=== PATIENT | female | born 1950 | race Two or more races ===

== ENCOUNTER → 2024-04-29 | Outpatient (CLI) | payer MEDICARE ==
--- NOTE | 2024-04-30 21:32 | PE ---
EXAMINATION TYPE: PET CT fusion skull to thigh DATE OF EXAM: 04/29/2024 CLINICAL INDICATION:Female, 74 years old with history of R91.1 lung nodule; TECHNIQUE: Following the intravenous administration of 8.07 mCi of F-18 FDG, whole body images are performed from the skull base to the midthigh. Images are reviewed on the computer in the coronal, a xial, and sagittal planes. Reconstructed rotating images are created on independent workstation and reviewed on the computer. A non-contrast CT is performed in conjunction with the PET scan. Glucose level 94 mg/dL CT DLP: 249.88 mGycm, Automated exposure control for dose reduction was used. COMPARISON: None available. FINDINGS: Mediastinal SUV mean is 1.5. Hepatic parenchyma SUV mean is 2.2. SKULL BASE AND NECK: No suspicious radiotracer activity. CHEST, MEDIASTINUM, AND HILAR REGION: There are FDG avid enlarged mediastinal and right hilar confluent adenopathy with examples including a pretracheal mass measuring 4.3 x 3.9 cm with a maximum SUV of 11.9. A subcarinal conglomerate mass measuring up to 3.3 cm in AP dimension with a max SUV of 12.4. Large soft tissue mass within the right hilum extending into the right lower lobe measuring grossly 1 0.2 x 6.3 cm. Demonstrates a maximum SUV of 20.5. There is adjacent opacities within the right lower lobe without FDG activity. There is a broad cut off of the right lower lobe bronchus. Findings are mo st consistent with post obstructive atelectasis. Left lower lobe subcentimeter pulmonary nodules with a maximum SUV of 3.4. Right axillary enlarged lymph node measuring up to 1.4 cm with a maximum SUV of 9.7. ABDOMEN AND PELVIS: Periportal enlarged lymph nodes with a maximum SUV of 12.7. Multifocal bilobar FDG avid regions of radiotracer activity with maximum SUV in the right lobe of 18. 0. The max SUV in the left hepatic lobe is 20.0. MUSCULOSKELETAL STRUCTURES: Innumerable lytic lesions throughout the osseous structures involving the bilateral femurs, pelvic sheila yanni, entire spine, bilateral ribs, sternum, both scapula, both clavicles, the left mandible, calvariu m, and the sella. Examples include the manubrium with a max SUV of 18.3, L5 vertebral body with a max SUV of 21.5, C4 v ertebral body with a max SUV of 20.3, and posterior left iliac bone with a max SUV of 20.9. OTHER CT: Bilateral carotid bulb calcifications. Left thyroid lobe 1.3 cm hypodense nodule. Centrilob ular emphysematous changes. IMPRESSION: Extensive malignancy/metastasis with FDG avid large conglomerate right lower lobe mass extending into the right hilum. FDG avid mediastinal, right axillary, and periportal lymphadenopathy. Innumerable F DG avid liver metastasis and innumerable diffuse osseous lytic metastasis. The right hilar mass cause s abrupt cut off of the right lower lobe bronchus causing post obstructive atelectasis. [facility], , 04/30/2024 9:30 PM
== END | disposition home or self-care (01) ==
LOC: RADPETMAIN 09:25
PROVIDERS: ATTEND Internal Medicine
DX: C78.7 Secondary malignant neoplasm of liver and intrahepatic bile duct (principal); R59.0 Localized enlarged lymph nodes; R91.8 Other nonspecific abnormal finding of lung field
CPT/HCPCS: 78815; A9552

== ENCOUNTER 2024-05-04 12:38 | Inpatient (IN) | payer MEDICARE ==
[2024-05-04] MEDS: IV FLUID CONTINUATION 1,000 ML IV ONE (12:57)
[2024-05-04] MEDS: LACTATED RINGERS 1,000 ML IV SCH (13:27)
[2024-05-04] MEDS: IPRATROPIUM-ALBUTEROL 3 ML NEB INHALATION STA (13:28)
[2024-05-04 15:04] LABS: Influenza A Not Detected (Not Detectd); Influenza B Not Detected (Not Detectd); RSV Not Detected (Not Detectd)
[2024-05-04] MEDS ORDERED: ONDANSETRON 4 MG/2 ML VIAL IVP PRN (17:05)
[2024-05-04] MEDS ORDERED: CALCIUM CARBONATE 500 MG CHEWABLE PO PRN (17:05)
[2024-05-04] MEDS ORDERED: NALOXONE 0.4 MG/ML 1 ML VIAL IV PRN (17:05)
[2024-05-04] MEDS ORDERED: IBUPROFEN 400 MG TAB PO PRN (17:05)
[2024-05-04] MEDS ORDERED: MAG HYDROX/AL HYDROX/SIMETH 30 ML CUP PO PRN (17:05)
[2024-05-04] MEDS: HYDROcodone/APAP 5-325MG 1 EACH TAB PO PRN (17:52)
[2024-05-04] MEDS: PIPERACILLIN-TAZOBACTAM 3.375 GM in SODIUM CHLORIDE 0.9% 100 ML IVPB SCH (17:56)
--- NOTE | 2024-05-04 18:37 | CT ---
EXAMINATION TYPE: CT brain wo con DATE OF EXAM: 05/04/2024 6:14 PM COMPARISON: PET. CLINICAL INDICATION: Female, 74 years old with history of ams, weakness, ams TECHNIQUE: Brain: Axial CT images of the brain were obtained with coronal and sagittal reformats created and rev iewed. Contrast used: None. Oral contrast used: None. CT DLP: 1144.7 mGycm, Automated exposure control for dose reduction was used. FINDINGS: Brain: Extra-axial spaces: No abnormal extra-axial fluid collections. Ventricular system: Dilatation in proportion to cerebral atrophy. Cerebral parenchyma: Cerebral atrophy. No acute intraparenchymal hemorrhage or mass effect. The mullen -white junction is well differentiated. Scattered hypoattenuating areas are seen within the white mat ter. Cerebellum: Unremarkable. Mass effect: No evidence of midline shift. Intracranial vasculature: Atherosclerotic calcifications of the intracranial vessels. Soft tissues: Normal. Calvarium/osseous structures: No depressed skull fracture. Scattered lucent lesions throughout the sk ull. Paranasal sinuses and mastoid air cells: Mild scattered paranasal sinus disease. Visualized orbits: Orbital contents are intact. IMPRESSION: 1. No acute intracranial process. 2. Scattered lucent lesions throughout the skull compatible with metastatic disease seen on prior PET . 3. Nonspecific white matter changes, likely secondary to chronic small vessel ischemic disease. [facility], , 05/04/2024 6:35 PM
[2024-05-04 18:56] LABS: Basophils % (A) 0 %; Eosinophils % (A) 0 %; HCT 34.9 % (34.0-46.0); Hypochromasia Slight; Lymphocytes # (A) 0.9 k/uL (1.0-4.8); Lymphocytes % (A) 9 %; MCH 31.2 pg (25.0-35.0); MCHC 31.6 g/dL (31.0-37.0); MCV 98.8 fL (80.0-100.0); Macrocytosis Slight; Monocytes # (A) 0.6 k/uL (0-1.0); Monocytes % (A) 6 %; Neutrophils # (A) 7.7 k/uL (1.3-7.7); Neutrophils % (A) 82 %; RBC 3.53 m/uL (3.80-5.40); RDW 14.8 % (11.5-15.5); WBC 9.4 k/uL (3.8-10.6)
[2024-05-04] MEDS: IPRATROPIUM-ALBUTEROL 3 ML NEB INHALATION SCH (18:56)
[2024-05-04] MEDS: SYMBICORT 80-4.5 MCG INHALER INHALATION SCH (18:56)
--- NOTE | 2024-05-04 18:59 | P.CNPUL ---
History of Present Illness Consult date: 05/04/24 Reason for consult: dyspnea, lung mass, abnormal CXR/CT History of present illness: This is a 74-year-old female patient who came in today to undergo the bronchoscopy and endobronchial ultrasound for tissue diagnosis regarding possibility of lung cancer the patient was found to have an abnormal CAT scan of the chest that was done on outpatient basis. The patient was saw me in the office approximately a week ago and she was referred to me for an abnormal CAT scan of the chest and shortness of breath. She is a [id number] smoking history and over the past 6 months the patient has been getting progressively more short of breath experiencing exertional dyspnea without hemoptysis. She also had an unexplained weight loss. She had diffuse body aches including pain in her mid back, lower spinal region and upper neck area. Noted the patient had a low-dose CAT scan of the chest that was done on 04/08/2024 and the patient was found to have a large mass measuring up to 7 cm in size in the right lower lobe causing narrowing of the right lower lobe bronchus and tapering of the bronchus intermedius and the patient had atelectatic change in the right lung base posteriorly. There was also evidence of mediastinal lymphadenopathy involving the subcarinal and paratracheal area and there was also abnormalities in the sixth and seventh rib on the right consistent with metastatic disease. There was also disease involving the L2 vertebral spine superior endplate consistent with metastatic disease. Her FEV1 was 34% of predicted and the patient was taken Advair. The patient was supposed to undergo a bronchoscopy today. She arrived and she was hypoxic and she was febrile and she was having increased cough and congestion and shortness of breath. Based on that, the procedure was canceled. A PET scan was also done on 04/30/2024 and the findings were considered to be abnormal. There was extensive metastatic disease with FDG uptake with large conglomeration of uptake in the right lower lobe mass extending to the right hilar in addition to FDG avid mediastinal, right axillary, periaortic node adenopathy and multiple innumerable FDG activity in the liver and diffuse osseous metastatic lytic lesions. There is also an abrupt cut off on the right lower lobe bronchus and postobstructive pneumonia changes. Based on that, I canceled the procedure and admitted this patient to the hospital. The patient is currently on 2 L of oxygen by nasal cannula with a pulse ox of 98%. Her temperature is at 100.0. Review of Systems Constitutional: Reports chronic pain, Reports fatigue, Reports lethargy, Reports poor appetite, Reports weakness, Reports weight loss Eyes: denies as per HPI, denies blurred vision, denies bulging eye, denies decreased vision, denies diplopia, denies discharge, denies dry eye, denies irritation, denies itching, denies pain, denies photophobia, denies loss of peripheral vision, denies loss of vision, denies tunnel vision/blind spots Ears: deny: decreased hearing Ears, nose, mouth and throat: Reports as per HPI Breasts: absent: as per HPI, change in shape, gynecomastia, masses, nipple discharge, pain, skin changes, swelling Cardiovascular: Reports decreased exercise tolerance, Reports dyspnea on exertion Respiratory: Reports cough, Reports dyspnea Gastrointestinal: Reports as per HPI, Reports loss of appetite Genitourinary: Reports as per HPI Menstruation: Reports as per HPI Musculoskeletal: Reports low back pain, Reports muscle weakness Musculoskeletal: absent: ankle pain, ankle stiffness, ankle swelling, as per HPI, elbow pain, elbow stiffness, elbow swelling, foot pain, foot stiffness, foot swelling, hand pain, hand stiffness, hand swelling, hip pain, hip stiffness, hip swelling, knee pain, knee stiffness, knee swelling, shoulder pain, shoulder stiffness, shoulder swelling, wrist pain, wrist stiffness, wrist swelling Integumentary: Reports as per HPI Neurological: Reports as per HPI Psychiatric: Reports as per HPI Endocrine: Reports fatigue Hematologic/Lymphatic: Reports as per HPI Allergic/Immunologic: Reports as per HPI Past Medical History Past Medical History: COPD, Hyperlipidemia, Hypertension Additional Past Medical History / Comment(s): coughing,shortness of breath, History of Any Multi-Drug Resistant Organisms: None Reported Additional Past Surgical History / Comment(s): lymph node bix in groin Past Anesthesia/Blood Transfusion Reactions: No Reported Reaction Smoking Status: Former smoker - Past Family History Father Family Medical History: Cancer Mother Family Medical History: Cancer Medications and Allergies Home Medications Medication Instructions Recorded Confirmed Type Albuterol Inhaler [Ventolin Hfa 1 - 2 puff INHALATION Q6H PRN 05/03/24 05/04/24 History Inhaler] Atorvastatin [Lipitor] 20 mg PO HS 05/03/24 05/04/24 History Fluticasone Propion/Salmeterol 2 puff INHALATION BID 05/03/24 05/04/24 History [Advair Hfa 45-21 Mcg Inhaler] hydroCHLOROthiazide 12.5 mg PO DAILY 05/03/24 05/04/24 History Allergies Allergy/AdvReac Type Severity Reaction Status Date / Time No Known Allergies Allergy Verified 05/04/24 13:09 Physical Exam Vitals: Vital Signs Temp Pulse Resp BP Pulse Ox 05/04/24 17:05 98 05/04/24 16:32 98.3 F 98 17 145/77 96 05/04/24 15:45 100 18 148/72 98 05/04/24 14:14 100.0 F H 101 H 20 98 05/04/24 13:11 107 H 20 97 05/04/24 12:59 99.9 F H 112 H 22 152/82 91 L Intake and Output 05/04/24 05/04/24 05/04/24 06:59 14:59 22:59 Intake Total 1080 Balance 1080 Intake: Oral 1080 Other: # Voids 1 Weight 48.6 kg The patient appeared ill looking, currently on 2 L of oxygen by nasal cannula. Some mild shortness of breath even at rest. She looks quite cachectic. Body mass index is 19. Head exam is unremarkable. No scleral icterus or corneal arcus noted. Neck is without jugular venous distension, thyromegaly, or carotid bruits. Carotid upstrokes are brisk bilaterally. Lungs show diminished breath sounds bilateral especially in the right lung base along with scattered expiratory wheezes Cardiac exam reveals the PMI to be normally sized and situated. Rhythm is regular. First and second heart sounds normal. No murmurs, rubs or gallops. Abdominal exam reveals normal bowel sounds, no masses, no organomegaly and no aortic enlargement. Extremities are nonedematous and both femoral and pedal pulses are normal. Examination of the skin revealed no evidence of significant rashes, suspicious appearing nevi or other concerning lesions. Neurologically, the patient is awake and alert and the patient does not have any focal neurological deficit. Cranial nerves are essentially intact. Results - Diagnostic Findings CT scan - chest: image reviewed Assessment and Plan Plan: Diffuse metastatic disease with a large right lower lobe mass extending to the right hilum causing abrupt cut off sign of the right lower lobe bronchus in addition to significant atelectatic change in the right lung base and a postobstructive pneumonia. In addition, the patient has diffuse metastases involving the skeletal system, liver and mediastinal nodes. This obviously carries a very poor prognosis. Highly suspect primary lung cancer with diffuse metastases. Postobstructive pneumonia in the right lower lobe Acute hypoxic respiratory failure currently on 2 L of oxygen by nasal cannula Shortness of breath secondary to above COPD with an FEV1 of 34% predicted Chronic debility and ongoing weight loss secondary to above Skeletal pain secondary to diffuse metastases Hypertension Hyperlipidemia History of smoking Plan Unable to perform bronchoscopy and endobronchial ultrasound for tissue diagnosis. The patient seems to be quite debilitated and she carries a high risk of developing respiratory failure if the procedure is performed under ge neral anesthesia Will consult oncology Will start the patient on IV Zosyn for postobstructive pneumonia Will put the patient on DuoNeb treatments [id number] and Symbicort Will slowly hydrate the patient CAT scan of the brain to rule out any [employer] metastases Oncology consultation If tissue diagnosis is needed, recommend a fine-needle aspirate by interventional radiology of various subcutaneous masses including a lesion that is accessible in the anterior sternal area as noted on the PET scan. Strongly advised hospice care. This was explained to the caregiver friend. Time with Patient: Greater than 30
[2024-05-04 19:19] LABS: ALT 40 U/L (4-34); AST 68 U/L (14-36); African American GFR (CKD) 89 (>60 ml/min/1.73 sqM); Albumin 3.6 g/dL (3.5-5.0); Albumin/Globulin Ratio 1.3; Alkaline Phosphatase 292 U/L (38-126); Anion Gap 11 mmol/L; Blood Urea Nitrogen 35 mg/dL (7-17); Calcium 11.9 mg/dL (8.4-10.2); Carbon Dioxide 28 mmol/L (22-30); Chloride 94 mmol/L (98-107); Globulin 2.8 g/dL; Glucose 99 mg/dL (74-99); Non-African American GFR(CKD) 77 (>60 ml/min/1.73 sqM); Potassium 3.9 mmol/L (3.5-5.1); Sodium 133 mmol/L (137-145); Total Protein 6.4 g/dL (6.3-8.2)
[2024-05-04 19:21] LABS: Platelet Count 91 k/uL (150-450)
[2024-05-04 19:43] LABS: C Reactive Protein 1.5 mg/dL (<1.0)
[2024-05-04] MEDS: SODIUM CHLORIDE 0.9% 500 ML 500 ML IV ONE (21:53)
[2024-05-04] MEDS: HEPARIN SODIUM,PORCINE 5,000 UNIT/ML 1 ML VIAL SQ SCH (21:56)
[2024-05-04] MEDS: ATORVASTATIN 20 MG TAB PO SCH (21:57)
[2024-05-05 02:06] LABS: Erythrocyte Sedimentation Rate 25 mm/Hr (0-30)
[2024-05-05 08:55] LABS: BUN/Creat Ratio 30.88 Ratio (12.00-20.00); Blood Urea Nitrogen 24.7 mg/dL (9.0-27.0); Calcium 11.3 mg/dL (8.7-10.3); Carbon Dioxide 26.4 mmol/L (21.6-31.8); Chloride 100 mmol/L (96-109); Glucose 95 mg/dL (70-110); Potassium 3.8 mmol/L (3.5-5.5); Sodium 139 mmol/L (135-145)
[2024-05-05 10:26] LABS: Basophils # (A) 0.04 X 10*3/uL (0.00-0.10); Basophils % (A) 0.5 %; Eosinophils # (A) 0.03 X 10*3/uL (0.04-0.35); Eosinophils % (A) 0.3 %; HCT 30.1 % (37.2-46.3); HGB 9.7 g/dL (12.0-15.0); Immature Platelet Fraction 5.7 % (1.1-6.1); Lymphocytes # (A) 0.88 X 10*3/uL (0.90-5.00); Lymphocytes % (A) 10.2 %; MCH 31.7 pg (27.0-32.0); MCHC 32.2 g/dL (32.0-37.0); MCV 98.4 FL (80.0-97.0); Mean Platelet Volume 11.3 FL (9.5-12.2); Monocytes % (A) 9.3 %; NRBC Per 100 WBC 0 X 10*3/uL (0.00-0.01); Neutrophils # (A) 6.75 X 10*3/uL (1.80-7.70); Neutrophils % (A) 78.7 %; Platelet Count 74 X 10*3/uL (140-440); RBC 3.06 X 10*6/uL (4.10-5.20); RBC Morphology Normal (Normal); RDW 15.7 % (11.5-14.5); WBC 8.59 X 10*3/uL (4.50-10.00)
--- NOTE | 2024-05-05 15:10 | US ---
EXAMINATION TYPE: US axilla RT DATE OF EXAM: 05/05/2024 COMPARISON: CT 6 days earlier CLINICAL INDICATION: Female, 74 years old with history of lymphadenopathy; right axilla lymph node, h istory of prior biopsy TECHNIQUE: FINDINGS: multiple lymph nodes right axilla, largest = 1.9 x 1.4 x 1.7cm with biopsy clip visualized IMPRESSION: Abnormal lymph node with biopsy clip identified correlates with recent PET CT [facility], , 05/05/2024 3:08 PM
[2024-05-05 17:11] VITALS: BMI 18.9
--- NOTE | 2024-05-05 17:55 | P.HPIM ---
History of Present Illness H&P Date: 05/05/24 Patient is a 74-year-old female with history of COPD (not on home oxygen), hyperlipidemia, hypertension was supposed to undergo bronchoscopy and EBUS with Dr. Mcdonald today on an outpatient basis due to recent abnormal low-dose CAT scan of the lung and PET scan. Patient is admitted to the hospital because she has been feeling short of breath which has been getting progressively worse associated with cough and congestion. The procedure has been postponed. Patient has significant smoking history and over the past 6 months she has been experiencing progressively worsening exertional dyspnea and unintentional weight loss. Initial laboratory evaluation showed WBC 9.4, hemoglobin 11.0, hematocrit 34.9, platelet count 91, sodium 133, chloride 94, BUN 35, creatinine 0.77, EGFR 77, lactic acid 4.6, calcium 9.9, AST 68, ALT 40, ALP 292, C-reactive protein 1.5, procalcitonin 1.74. Influenza type A, B, RSV, COVID-[address] shows no acute cranial process, scattered lucent lesions throughout the skull compatible with metastatic disease seen on prior PET, nonspecific white matter changes, likely secondary to chronic small vessel ischemic disease. Axillary ultrasound shows right axillary lymph node. Vital signs on arrival shows temperature 99.9 F, pulse rate 112, respiratory ra te 22, blood pressure 152/82, oxygen saturation 91% on room air Review of systems: Pertinent positives and negatives as discussed in HPI, a complete review of systems was performed and all other systems are negative. Social history: As above HPI Physical examination: Vital signs reviewed General: Chronically ill looking and cachectic Derm: no unusual rashes/lesions, warm Head: atraumatic, normocephalic, symmetric Eyes: EOMI, no lid lag, anicteric sclera, pupils equal round reactive to light ENT: Nose and ears atraumatic Neck: No cervical lymphadenopathy, trachea midline, supple Mouth: no lip lesion, mucus membranes moist Cardiovascular: S1S2 reg, no murmur, positive dorsalis pedis pulse bilateral, no edema Lungs: Bilateral expiratory wheezing more on the right side. Abdominal: soft, nontender to palpation, no guarding Ext: muscle strength 5 out of 5 in all 4 extremities grossly, no gross muscle atrophy, no contractures, Neuro: CN II-XI grossly intact, no gross focal neuro deficits Psych: Alert, oriented, appropriate affect Assessment/Plan: Labs and images: Initial laboratory evaluation showed WBC 9.4, hemoglobin 11.0, hematocrit 34.9, platelet count 91, sodium 133, chloride 94, BUN 35, creatinine 0.77, EGFR 77, lactic acid 4.6, calcium 9.9, AST 68, ALT 40, ALP 292, C-reactive protein 1.5, procalcitonin 1.74. Influenza type A, B, RSV, COVID-19 negative. Subsequent labs from 05/05/2024 shows WBC 8.59, hemoglobin 9.7, hematocrit 30.1, MCV 98.4, platelet count 24, sodium 139, potassium 3.8, chloride 100, bicarb 26.4, lactic acid 4.0, calcium 9.[address] shows no acute cranial process, scattered lucent lesions throughout the skull compatible with metastatic disease seen on prior PET, nonspecific white matter changes, likely secondary to chronic small vessel ischemic disease. Axillary ultrasound shows right axillary lymph node. Active problems: #Lung mass, metastatic #Acute hypoxemic respiratory failure in the setting of likely metastatic lung disease #Lactic acidosis secondary to above #Hypercalcemia secondary above #Elevated procalcitonin #Thrombocytopenia #Normocytic anemia Consult pulmonology Consult oncology Consult infectious disease Oxygen therapy as needed Resume Symbicort and albuterol inhalers DuoNebs scheduled and [id number] Zosyn 3.375 g IVP every 8 hour LR at 75 cc/h Monitor CBC #Transaminases in the setting of likely metastatic lung disease Monitor CMP Chronic conditions: Resume home medications DVT prophylaxis: Subcu heparin GI prophylaxis: None F: LR at 75 cc/h E: Replete as needed N: Regular diet A: Ambulatory at baseline The patient is admitted with an anticipated more than than 2 midnight stay for evaluation of metastatic lung disease CODE STATUS: No code Discussed with: Patient Anticipated discharge place: Pending clinical course Dictation was produced using [employer] dictation software. Please excuse any grammatical, word or spelling errors. Attestation I have seen and examined this patient with my resident , discussed the same with the resident/RADHA, and agree with the dictator's assessment and plan as written GENERAL: The patient is alert and oriented x3, ill looking HEENT: Pupils are round and equally reacting to light. EOMI. No scleral icterus. No conjunctival pallor. Normocephalic, atraumatic. No pharyngeal erythema. No thyromegaly. CARDIOVASCULAR: S1 and S2 present. No murmurs, rubs, or gallops. PULMONARY: Tachypneic, coarse breath sounds bilaterally, no wheezing or crackles. ABDOMEN: Soft, nontender, nondistended, normoactive bowel sounds. No palpable organomegaly. MUSCULOSKELETAL: No joint swelling or deformity. EXTREMITIES: No cyanosis, clubbing, or pedal edema. NEUROLOGICAL: Gross neurological examination did not reveal any focal deficits. SKIN: No rashes. Dr. Tad villafana Past Medical History Past Medical History: COPD, Hyperlipidemia, Hypertension Additional Past Medical History / Comment(s): coughing,shortness of breath, History of Any Multi-Drug Resistant Organisms: None Reported Additional Past Surgical History / Comment(s): lymph node bix in groin Past Anesthesia/Blood Transfusion Reactions: No Reported Reaction Smoking Status: Current every day smoker - Past Family History Father Family Medical History: Cancer Mother Family Medical History: Cancer Medications and Allergies Home Medications Medication Instructions Recorded Confirmed Type Albuterol Inhaler [Ventolin Hfa 1 - 2 puff INHALATION Q6H PRN 05/03/24 05/04/24 History Inhaler] Atorvastatin [Lipitor] 20 mg PO HS 05/03/24 05/04/24 History Fluticasone Propion/Salmeterol 2 puff INHALATION BID 05/03/24 05/04/24 History [Advair Hfa 45-21 Mcg Inhaler] hydroCHLOROthiazide 12.5 mg PO DAILY 05/03/24 05/04/24 History Allergies Allergy/AdvReac Type Severity Reaction Status Date / Time No Known Allergies Allergy Verified 05/04/24 13:09 Physical Exam Vitals: Vital Signs Temp Pulse Pulse Resp BP Pulse Ox 05/05/24 17:05 96 05/05/24 15:19 86 05/05/24 15:09 91 05/05/24 12:09 97.8 F 85 16 128/71 97 05/05/24 11:56 90 05/05/24 11:44 86 05/05/24 08:08 85 05/05/24 07:59 97 05/05/24 07:56 87 05/05/24 07:23 97.9 F 83 14 133/68 96 05/05/24 01:57 97.7 F 94 14 157/82 95 05/04/24 19:43 97.5 F L 99 14 117/56 98 05/04/24 19:05 92 05/04/24 18:56 97 Intake and Output 05/05/24 05/05/24 05/05/24 06:59 14:59 22:59 Intake Total 540 Balance 540 Intake: Oral 540 Other: Voiding Method Toilet Bedside Commode # Voids 1 1 1 Weight 48.6 kg 48.6 kg Results CBC & Chem 7: 05/05/24 05:14 05/06/24 03:50 Labs: Abnormal Lab Results - Last 24 Hours (Table) 05/04/24 05/04/24 05/04/24 Range/Units 18:37 18:37 18:37 RBC 3.53 L (3.80-5.40) m/uL Hgb 11.0 L (11.4-16.0) gm/dL Hct (37.2-46.3) % MCV (80.0-97.0) FL RDW (11.5-14.5) % Plt Count 91 L (150-450) k/uL Immature Gran # (0.00-0.04) X 10*3/uL Lymphocytes # 0.9 L (1.0-4.8) k/uL Eosinophils # (0.04-0.35) X 10*3/uL Sodium 133 L (137-145) mmol/L Chloride 94 L (98-107) mmol/L Anion Gap (4.00-12.00) mmol/L BUN 35 H (7-17) mg/dL BUN/Creatinine Ratio (12.00-20.00) Ratio Plasma Lactic Acid Mickey 4.8 H* (0.7-2.0) mmol/L Calcium 11.9 H (8.4-10.2) mg/dL AST 68 H (14-36) U/L ALT 40 H (4-34) U/L Alkaline Phosphatase 292 H (38-126) U/L C-Reactive Protein 1.5 H (<1.0) mg/dL Procalcitonin (0.02-0.50) ng/mL 05/04/24 05/04/24 05/05/24 Range/Units 18:37 21:48 05:14 RBC 3.06 L (3.80-5.40) m/uL Hgb 9.7 L (11.4-16.0) gm/dL Hct 30.1 L (37.2-46.3) % MCV 98.4 H (80.0-97.0) FL RDW 15.7 H (11.5-14.5) % Plt Count 74 L (150-450) k/uL Immature Gran # 0.09 H (0.00-0.04) X 10*3/uL Lymphocytes # 0.88 L (1.0-4.8) k/uL Eosinophils # 0.03 L (0.04-0.35) X 10*3/uL Sodium (137-145) mmol/L Chloride (98-107) mmol/L Anion Gap (4.00-12.00) mmol/L BUN (7-17) mg/dL BUN/Creatinine Ratio (12.00-20.00) Ratio Plasma Lactic Acid Mickey 4.6 H* (0.7-2.0) mmol/L Calcium (8.4-10.2) mg/dL AST (14-36) U/L ALT (4-34) U/L Alkaline Phosphatase (38-126) U/L C-Reactive Protein (<1.0) mg/dL Procalcitonin 1.74 H (0.02-0.50) ng/mL 05/05/24 05/05/24 05/05/24 Range/Units 05:14 05:14 07:50 RBC (3.80-5.40) m/uL Hgb (11.4-16.0) gm/dL Hct (37.2-46.3) % MCV (80.0-97.0) FL RDW (11.5-14.5) % Plt Count (150-450) k/uL Immature Gran # (0.00-0.04) X 10*3/uL Lymphocytes # (1.0-4.8) k/uL Eosinophils # (0.04-0.35) X 10*3/uL Sodium (137-145) mmol/L Chloride (98-107) mmol/L Anion Gap 12.60 H (4.00-12.00) mmol/L BUN (7-17) mg/dL BUN/Creatinine Ratio 30.88 H (12.00-20.00) Ratio Plasma Lactic Acid Mickey 3.8 H* 3.6 H* (0.7-2.0) mmol/L Calcium 11.3 H (8.4-10.2) mg/dL AST (14-36) U/L ALT (4-34) U/L Alkaline Phosphatase (38-126) U/L C-Reactive Protein (<1.0) mg/dL Procalcitonin (0.02-0.50) ng/mL 05/05/24 05/05/24 Range/Units 10:32 13:02 RBC (3.80-5.40) m/uL Hgb (11.4-16.0) gm/dL Hct (37.2-46.3) % MCV (80.0-97.0) FL RDW (11.5-14.5) % Plt Count (150-450) k/uL Immature Gran # (0.00-0.04) X 10*3/uL Lymphocytes # (1.0-4.8) k/uL Eosinophils # (0.04-0.35) X 10*3/uL Sodium (137-145) mmol/L Chloride (98-107) mmol/L Anion Gap (4.00-12.00) mmol/L BUN (7-17) mg/dL BUN/Creatinine Ratio (12.00-20.00) Ratio Plasma Lactic Acid Mickey 4.0 H* 4.0 H* (0.7-2.0) mmol/L Calcium (8.4-10.2) mg/dL AST (14-36) U/L ALT (4-34) U/L Alkaline Phosphatase (38-126) U/L C-Reactive Protein (<1.0) mg/dL Procalcitonin (0.02-0.50) ng/mL Thrombosis Risk Factor Assmnt - Choose All That Apply Each Factor Represents 1 point: Abnormal pulmonary function (COPD) Each Risk Factor Represents 2 Points: Age 61-74 years, Malignancy Thrombosis Risk Factor Assessment Total Risk Factor Score: 5 Thrombosis Risk Factor Assessment Level: High Risk
--- NOTE | 2024-05-05 20:06 | P.PN ---
Subjective Progress Note Date: 05/05/24 This is a 74-year-old female patient who came in today to undergo the bronchoscopy and endobronchial ultrasound for tissue diagnosis regarding possibility of lung cancer the patient was found to have an abnormal CAT scan of the chest that was done on outpatient basis. The patient was saw me in the office approximately a week ago and she was referred to me for an abnormal CAT scan of the chest and shortness of breath. She is a [id number] smoking history and over the past 6 months the patient has been getting progressively more short of breath experiencing exertional dyspnea without hemoptysis. She also had an unexplained weight loss. She had diffuse body aches including pain in her mid back, lower spinal region and upper neck area. Noted the patient had a low-dose CAT scan of the chest that was done on 04/08/2024 and the patient was found to have a large mass measuring up to 7 cm in size in the right lower lobe causing narrowing of the right lower lobe bronchus and tapering of the bronchus intermedius and the patient had atelectatic change in the right lung base posteriorly. There was also evidence of mediastinal lymphadenopathy involving the subcarinal and paratracheal area and there was also abnormalities in the sixth and seventh rib on the right consistent with metastatic disease. There was also disease involving the L2 vertebral spine superior endplate consistent with metastatic disease. Her FEV1 was 34% of predicted and the patient was taken Advair. The patient was supposed to undergo a bronchoscopy today. She arrived and she was hypoxic and she was febrile and she was having increased cough and congestion and shortness of breath. Based on that, the procedure was canceled. A PET scan was also done on 04/30/2024 and the findings were considered to be abnormal. There was extensive metastatic disease with FDG uptake with large conglomeration of uptake in the right lower lobe mass extending to the right hilar in addition to FDG avid mediastinal, right axillary, periaortic node adenopathy and multiple innumerable FDG activity in the liver and diffuse osseous metastatic lytic lesions. There is also an abrupt cut off on the right lower lobe bronchus and postobstructive pneumonia changes. Based on that, I canceled the procedure and admitted this patient to the hospital. The patient is currently on 2 L of oxygen by nasal cannula with a pulse ox of 98%. Her temperature is at 100.0. On today's evaluation of 05/05/2024, the patient slightly large short of breath compared to yesterday. The patient is afebrile and currently is on 2 L of oxygen by nasal cannula. Awaiting an oncology consultation. Lactic acid level remains elevated at 4. The white cell count of 8.5 with a hemoglobin 9.7 and a platelet count of 74. Electrolytes are all stable. Viral screen has been negative. The patient remains on IV Zosyn for postobstructive pneumonia. She r emains on DuoNeb. She is on [place] for pain control. He is also on lactated Ringer at rate of 75 cc an hour. Objective - Vital Signs Vital signs: Vital Signs Temp 97.9 F 05/05/24 07:23 Pulse 90 05/05/24 11:56 Resp 14 05/05/24 07:23 BP 133/68 05/05/24 07:23 Pulse Ox 97 05/05/24 07:59 FiO2 Intake & Output 05/04/24 05/05/24 05/05/24 18:59 06:59 18:59 Intake Total 1080 540 Balance 1080 540 Weight 48.6 kg 48.6 kg Intake: Oral 1080 540 Other: Voiding Method Toilet Toilet Bedside Commode Bedside Commode # Voids 1 1 1 - Exam The patient appeared ill looking, currently on 2 L of oxygen by nasal cannula. Some mild shortness of breath even at rest. She looks quite cachectic. Body mass index is 19. Head exam is unremarkable. No scleral icterus or corneal arcus noted. Neck is without jugular venous distension, thyromegaly, or carotid bruits. Carotid upstrokes are brisk bilaterally. Lungs show diminished breath sounds bilateral especially in the right lung base along with scattered expiratory wheezes Cardiac exam reveals the PMI to be normally sized and situated. Rhythm is regular. First and second heart sounds normal. No murmurs, rubs or gallops. Abdominal exam reveals normal bowel sounds, no masses, no organomegaly and no aortic enlargement. Extremities are nonedematous and both femoral and pedal pulses are normal. Examination of the skin revealed no evidence of significant rashes, suspicious appearing nevi or other concerning lesions. Neurologically, the patient is awake and alert and the patient does not have any focal neurological deficit. Cranial nerves are essentially intact. - Labs CBC & Chem 7: 05/05/24 05:14 05/05/24 05:14 Labs: Abnormal Lab Results - Last 24 Hours (Table) 05/04/24 05/04/24 05/04/24 Range/Units 18:37 18:37 18:37 RBC 3.53 L (3.80-5.40) m/uL Hgb 11.0 L (11.4-16.0) gm/dL Hct (37.2-46.3) % MCV (80.0-97.0) FL RDW (11.5-14.5) % Plt Count 91 L (150-450) k/uL Immature Gran # (0.00-0.04) X 10*3/uL Lymphocytes # 0.9 L (1.0-4.8) k/uL Eosinophils # (0.04-0.35) X 10*3/uL Sodium 133 L (137-145) mmol/L Chloride 94 L (98-107) mmol/L Anion Gap (4.00-12.00) mmol/L BUN 35 H (7-17) mg/dL BUN/Creatinine Ratio (12.00-20.00) Ratio Plasma Lactic Acid Mickey 4.8 H* (0.7-2.0) mmol/L Calcium 11.9 H (8.4-10.2) mg/dL AST 68 H (14-36) U/L ALT 40 H (4-34) U/L Alkaline Phosphatase 292 H (38-126) U/L C-Reactive Protein 1.5 H (<1.0) mg/dL Procalcitonin (0.02-0.50) ng/mL 05/04/24 05/04/24 05/05/24 Range/Units 18:37 21:48 05:14 RBC 3.06 L (3.80-5.40) m/uL Hgb 9.7 L (11.4-16.0) gm/dL Hct 30.1 L (37.2-46.3) % MCV 98.4 H (80.0-97.0) FL RDW 15.7 H (11.5-14.5) % Plt Count 74 L (150-450) k/uL Immature Gran # 0.09 H (0.00-0.04) X 10*3/uL Lymphocytes # 0.88 L (1.0-4.8) k/uL Eosinophils # 0.03 L (0.04-0.35) X 10*3/uL Sodium (137-145) mmol/L Chloride (98-107) mmol/L Anion Gap (4.00-12.00) mmol/L BUN (7-17) mg/dL BUN/Creatinine Ratio (12.00-20.00) Ratio Plasma Lactic Acid Mickey 4.6 H* (0.7-2.0) mmol/L Calcium (8.4-10.2) mg/dL AST (14-36) U/L ALT (4-34) U/L Alkaline Phosphatase (38-126) U/L C-Reactive Protein (<1.0) mg/dL Procalcitonin 1.74 H (0.02-0.50) ng/mL 05/05/24 05/05/24 05/05/24 Range/Units 05:14 05:14 07:50 RBC (3.80-5.40) m/uL Hgb (11.4-16.0) gm/dL Hct (37.2-46.3) % MCV (80.0-97.0) FL RDW (11.5-14.5) % Plt Count (150-450) k/uL Immature Gran # (0.00-0.04) X 10*3/uL Lymphocytes # (1.0-4.8) k/uL Eosinophils # (0.04-0.35) X 10*3/uL Sodium (137-145) mmol/L Chloride (98-107) mmol/L Anion Gap 12.60 H (4.00-12.00) mmol/L BUN (7-17) mg/dL BUN/Creatinine Ratio 30.88 H (12.00-20.00) Ratio Plasma Lactic Acid Mickey 3.8 H* 3.6 H* (0.7-2.0) mmol/L Calcium 11.3 H (8.4-10.2) mg/dL AST (14-36) U/L ALT (4-34) U/L Alkaline Phosphatase (38-126) U/L C-Reactive Protein (<1.0) mg/dL Procalcitonin (0.02-0.50) ng/mL 03/12/25 Range/Units 10:32 RBC (3.80-5.40) m/uL Hgb (11.4-16.0) gm/dL Hct (37.2-46.3) % MCV (80.0-97.0) FL RDW (11.5-14.5) % Plt Count (150-450) k/uL Immature Gran # (0.00-0.04) X 10*3/uL Lymphocytes # (1.0-4.8) k/uL Eosinophils # (0.04-0.35) X 10*3/uL Sodium (137-145) mmol/L Chloride (98-107) mmol/L Anion Gap (4.00-12.00) mmol/L BUN (7-17) mg/dL BUN/Creatinine Ratio (12.00-20.00) Ratio Plasma Lactic Acid Mickey 4.0 H* (0.7-2.0) mmol/L Calcium (8.4-10.2) mg/dL AST (14-36) U/L ALT (4-34) U/L Alkaline Phosphatase (38-126) U/L C-Reactive Protein (<1.0) mg/dL Procalcitonin (0.02-0.50) ng/mL Assessment and Plan Plan: Diffuse metastatic disease with a large right lower lobe mass extending to the right hilum causing abrupt cut off sign of the right lower lobe bronchus in addition to significant atelectatic change in the right lung base and a postobstructive pneumonia. In addition, the patient has diffuse metastases involving the skeletal system, liver and mediastinal nodes. This obviously carries a very poor prognosis. Highly suspect primary lung cancer with diffuse metastases. Postobstructive pneumonia in the right lower lobe Acute hypoxic respiratory failure currently on 2 L of oxygen by nasal cannula Shortness of breath secondary to above COPD with an FEV1 of 34% predicted Chronic debility and ongoing weight loss secondary to above Skeletal pain secondary to diffuse metastases Hypertension Hyperlipidemia History of smoking Lactic acidosis, mild Plan Clinically stable, slightly improved compared to yesterday Continues to have mild lactic acidosis Unable to perform bronchoscopy and endobronchial ultrasound for tissue diagnosis. The patient seems to be quite debilitated and she carries a high risk of developing respiratory failure if the procedure is performed under general anesthesia Pending oncology Continue IV Zosyn for postobstructive pneumonia Continue DuoNeb treatments [id number] and Symbicort LR at rate of 75 cc an hour CAT scan of the brain shows no [place] metastases. There is mass to the scalp. If tissue diagnosis is needed, recommend a fine-needle aspirate by interventional radiology of various subcutaneous masses including a lesion that is accessible in the anterior sternal area as noted on the PET scan. Alternatively, the axillary lymph nodes can be also biopsied. Strongly advised hospice care. This was explained to the caregiver friend. Time with Patient: Greater than 30
[2024-05-05] MEDS: ACETAMINOPHEN TAB 325 MG TAB PO PRN (21:09)
--- NOTE | 2024-05-05 23:31 | P.CONS ---
History of Present Illness - Reason for Consult Consult date: 05/05/24 Pneumonia Requesting physician: Sara Mir - Chief Complaint Fever shortness of breath x days - History of Present Illness Patient is a 74-year-old female with a past medical history negative for COPD hypertension hyperlipidemia currently with a smoker patient apparently was supposed to go for bronchoscopy with lung biopsy however the patient was noticed to be febrile also complaining of increasing shortness of breath and cough and the patient has been admitted to hospital concerning for postobstructive pneumonia patient complaining of shortness of breath has been getting worse over the last few days the patient did have a cough which is moderate intensity and is bringing up some sputum denies any hemoptysis no pleuritic chest pain no nausea no vomiting no abdominal pain no diarrhea on presentation to hospital patient did have a temperature of 99.9 degrees for night subsequently temperature of 100 F patient was mildly tachycardic but not hypotensive or hypoxic currently on 2 L current oxygen patient did have a white count of 9.4 creatinine has been normal lactic acid was 4.6 liver enzymes are elevated influenza RSV COVID testing has been negative Review of Systems Positive point and negatives has been mentioned in the HPI, complete review of systems was performed and all other systems are negative Past Medical History Past Medical History: COPD, Hyperlipidemia, Hypertension Additional Past Medical History / Comment(s): coughing,shortness of breath, History of Any Multi-Drug Resistant Organisms: None Reported Additional Past Surgical History / Comment(s): lymph node bix in groin Past Anesthesia/Blood Transfusion Reactions: No Reported Reaction Smoking Status: Current every day smoker - Past Family History Father Family Medical History: Cancer Mother Family Medical History: Cancer Medications and Allergies Home Medications Medication Instructions Recorded Confirmed Type Albuterol Inhaler [Ventolin Hfa 1 - 2 puff INHALATION Q6H PRN 05/03/24 05/04/24 History Inhaler] Atorvastatin [Lipitor] 20 mg PO HS 05/03/24 05/04/24 History Fluticasone Propion/Salmeterol 2 puff INHALATION BID 05/03/24 05/04/24 History [Advair Hfa 45-21 Mcg Inhaler] hydroCHLOROthiazide 12.5 mg PO DAILY 05/03/24 05/04/24 History Allergies Allergy/AdvReac Type Severity Reaction Status Date / Time No Known Allergies Allergy Verified 05/04/24 13:09 Physical Exam Vitals: Vital Signs Temp Pulse Pulse Resp BP Pulse Ox 05/05/24 08:08 85 05/05/24 07:59 97 05/05/24 07:56 87 05/05/24 07:23 97.9 F 83 14 133/68 96 05/05/24 01:57 97.7 F 94 14 157/82 95 05/04/24 19:43 97.5 F L 99 14 117/56 98 05/04/24 19:05 92 05/04/24 18:56 97 05/04/24 17:05 98 05/04/24 16:32 98.3 F 98 17 145/77 96 05/04/24 15:45 100 18 148/72 98 05/04/24 14:14 100.0 F H 101 H 20 98 05/04/24 13:11 107 H 20 97 05/04/24 12:59 99.9 F H 112 H 22 152/82 91 L Intake and Output 05/04/24 05/05/24 05/05/24 22:59 06:59 14:59 Intake Total 1080 540 Balance 1080 540 Intake: Oral 1080 540 Other: Voiding Method Toilet Bedside Commode # Voids 1 1 Weight 48.6 kg GENERAL DESCRIPTION: Elderly female lying in bed, no distress. No tachypnea or accessory muscle of respiration use. HEENT: Shows Pallor , no scleral icterus. Oral mucous membrane is dry. NECK: Trachea central, no thyromegaly. LUNGS: Unlabored breathing. Coarse breath sounds HEART: S1, S2, regular rate and rhythm. No loud murmur ABDOMEN: Soft, no tenderness , EXTREMITIES: No edema of feet. SKIN: No rash, no masses palpable. NEUROLOGICAL: The patient is awake, alert, oriented x3, mood and affect normal. Results CBC & Chem 7: 05/05/24 05:14 05/05/24 05:14 Labs: Abnormal Lab Results - Last 24 Hours (Table) 05/04/24 05/04/24 05/04/24 Range/Units 18:37 18:37 18:37 RBC 3.53 L (3.80-5.40) m/uL Hgb 11.0 L (11.4-16.0) gm/dL Hct (37.2-46.3) % MCV (80.0-97.0) FL RDW (11.5-14.5) % Plt Count 91 L (150-450) k/uL Immature Gran # (0.00-0.04) X 10*3/uL Lymphocytes # 0.9 L (1.0-4.8) k/uL Eosinophils # (0.04-0.35) X 10*3/uL Sodium 133 L (137-145) mmol/L Chloride 94 L (98-107) mmol/L Anion Gap (4.00-12.00) mmol/L BUN 35 H (7-17) mg/dL BUN/Creatinine Ratio (12.00-20.00) Ratio Plasma Lactic Acid Mickey 4.8 H* (0.7-2.0) mmol/L Calcium 11.9 H (8.4-10.2) mg/dL AST 68 H (14-36) U/L ALT 40 H (4-34) U/L Alkaline Phosphatase 292 H (38-126) U/L C-Reactive Protein 1.5 H (<1.0) mg/dL Procalcitonin (0.02-0.50) ng/mL 05/04/24 05/04/24 05/05/24 Range/Units 18:37 21:48 05:14 RBC 3.06 L (3.80-5.40) m/uL Hgb 9.7 L (11.4-16.0) gm/dL Hct 30.1 L (37.2-46.3) % MCV 98.4 H (80.0-97.0) FL RDW 15.7 H (11.5-14.5) % Plt Count 74 L (150-450) k/uL Immature Gran # 0.09 H (0.00-0.04) X 10*3/uL Lymphocytes # 0.88 L (1.0-4.8) k/uL Eosinophils # 0.03 L (0.04-0.35) X 10*3/uL Sodium (137-145) mmol/L Chloride (98-107) mmol/L Anion Gap (4.00-12.00) mmol/L BUN (7-17) mg/dL BUN/Creatinine Ratio (12.00-20.00) Ratio Plasma Lactic Acid Mickey 4.6 H* (0.7-2.0) mmol/L Calcium (8.4-10.2) mg/dL AST (14-36) U/L ALT (4-34) U/L Alkaline Phosphatase (38-126) U/L C-Reactive Protein (<1.0) mg/dL Procalcitonin 1.74 H (0.02-0.50) ng/mL 05/05/24 05/05/24 05/05/24 Range/Units 05:14 05:14 07:50 RBC (3.80-5.40) m/uL Hgb (11.4-16.0) gm/dL Hct (37.2-46.3) % MCV (80.0-97.0) FL RDW (11.5-14.5) % Plt Count (150-450) k/uL Immature Gran # (0.00-0.04) X 10*3/uL Lymphocytes # (1.0-4.8) k/uL Eosinophils # (0.04-0.35) X 10*3/uL Sodium (137-145) mmol/L Chloride (98-107) mmol/L Anion Gap 12.60 H (4.00-12.00) mmol/L BUN (7-17) mg/dL BUN/Creatinine Ratio 30.88 H (12.00-20.00) Ratio Plasma Lactic Acid Mickey 3.8 H* 3.6 H* (0.7-2.0) mmol/L Calcium 11.3 H (8.4-10.2) mg/dL AST (14-36) U/L ALT (4-34) U/L Alkaline Phosphatase (38-126) U/L C-Reactive Protein (<1.0) mg/dL Procalcitonin (0.02-0.50) ng/mL 05/05/24 Range/Units 10:32 RBC (3.80-5.40) m/uL Hgb (11.4-16.0) gm/dL Hct (37.2-46.3) % MCV (80.0-97.0) FL RDW (11.5-14.5) % Plt Count (150-450) k/uL Immature Gran # (0.00-0.04) X 10*3/uL Lymphocytes # (1.0-4.8) k/uL Eosinophils # (0.04-0.35) X 10*3/uL Sodium (137-145) mmol/L Chloride (98-107) mmol/L Anion Gap (4.00-12.00) mmol/L BUN (7-17) mg/dL BUN/Creatinine Ratio (12.00-20.00) Ratio Plasma Lactic Acid Mickey 4.0 H* (0.7-2.0) mmol/L Calcium (8.4-10.2) mg/dL AST (14-36) U/L ALT (4-34) U/L Alkaline Phosphatase (38-126) U/L C-Reactive Protein (<1.0) mg/dL Procalcitonin (0.02-0.50) ng/mL Assessment and Plan Plan: 1patient presented to hospital with sepsis in this patient noted to have fever tachycardia elevated lactic acid source likely pneumonia and likely concerning for postobstructive pneumonia for which will need to cover for the polymicrobial felicia especially Associated with such infection 2-obtain sputum for Gram stain and culture 3-patient has been appropriately started on Zosyn 3.37 g every 8 hour. To continue while waiting for the workup to be completed We will follow on clinical condition and cultures to further adjust medication if needed Thank you for this consultation we will follow the patient along with you Dictation was produced using [employer] dictation software. please excuse any grammatical, word or spelling errors. Time with Patient: Greater than 30
--- NOTE | 2024-05-05 23:42 | P.CONS ---
History of Present Illness - Reason for Consult Consult date: 05/05/24 positive PET, pending biopsy for pathology Requesting physician: Sara Mir - Chief Complaint biospy - History of Present Illness Ms. John was not initially seen in the office 04/21/2024. She is a 74-year-old woman with a past medical history significant for COPD and prior history of cigarette smoking who presents for evaluation of lung mass. Over the past 5 to 6 months, noted progressive cough with dyspnea on exertion. She denied any hemoptysis, fevers, chills, anorexia, unexplained weight loss, or focal pain. She notes having had blurry vision in the past, which may be more prominent now, but denies any focal neurologic deficits. She smoked cigarettes daily for approximately 50 years at around half to a third a pack per day and quit smoking last week. She had low-dose CT of the chest without contrast performed on 04/08/2024, which noted large mass measuring up to 7 cm in the infrahilar region in the right lower lobe with endobronchial occlusion and moderate degree of atelectasis. In addition, there was concern for mediastinal lymphadenopathy at the bertha along with multiple nodules bilaterally that appeared to be new compared to low-dose CT of the chest on 02/20/2022. In addition, there was irregularity at the right sixth and seventh rib that was nonspecific along with L2 vertebral body superior endplate appearing abnormal. She was then scheduled for a PET/CT which revealed significant disease throughout the body including the liver, the bones as well as right sided lung lesions and lymphadenopathy. Patient was referred to pulmonary for biopsy, unfortunately patient respiratory status is not adequate for procedure. Patient is currently admitted pending a biopsy for diagnosis. When seen today the patient was very uncomfortable and agitated, she could not exactly pinpoint why she was feeling this way. She denied any specific area of pain, no nausea but no appetite either. General malaise Review of Systems 10 point ROS is neg except as stated in HPI Past Medical History Past Medical History: COPD, Hyperlipidemia, Hypertension Additional Past Medical History / Comment(s): coughing,shortness of breath, History of Any Multi-Drug Resistant Organisms: None Reported Additional Past Surgical History / Comment(s): lymph node bix in groin Past Anesthesia/Blood Transfusion Reactions: No Reported Reaction Smoking Status: Current every day smoker - Past Family History Father Family Medical History: Cancer Mother Family Medical History: Cancer Medications and Allergies Home Medications Medication Instructions Recorded Confirmed Type Albuterol Inhaler [Ventolin Hfa 1 - 2 puff INHALATION Q6H PRN 05/03/24 05/04/24 History Inhaler] Atorvastatin [Lipitor] 20 mg PO HS 05/03/24 05/04/24 History Fluticasone Propion/Salmeterol 2 puff INHALATION BID 05/03/24 05/04/24 History [Advair Hfa 45-21 Mcg Inhaler] hydroCHLOROthiazide 12.5 mg PO DAILY 05/03/24 05/04/24 History Allergies Allergy/AdvReac Type Severity Reaction Status Date / Time No Known Allergies Allergy Verified 05/04/24 13:09 Physical Exam Vitals: Vital Signs Temp Pulse Pulse Resp BP Pulse Ox 05/05/24 08:08 85 05/05/24 07:59 97 05/05/24 07:56 87 05/05/24 07:23 97.9 F 83 14 133/68 96 05/05/24 01:57 97.7 F 94 14 157/82 95 05/04/24 19:43 97.5 F L 99 14 117/56 98 05/04/24 19:05 92 05/04/24 18:56 97 05/04/24 17:05 98 05/04/24 16:32 98.3 F 98 17 145/77 96 05/04/24 15:45 100 18 148/72 98 05/04/24 14:14 100.0 F H 101 H 20 98 05/04/24 13:11 107 H 20 97 05/04/24 12:59 99.9 F H 112 H 22 152/82 91 L Intake and Output 05/04/24 05/05/24 05/05/24 22:59 06:59 14:59 Intake Total 1080 540 Balance 1080 540 Intake: Oral 1080 540 Other: Voiding Method Toilet Bedside Commode # Voids 1 1 Weight 48.6 kg - Constitutional General appearance: cooperative, disheveled, mild distress, thin - EENT Eyes: anicteric sclerae, EOMI ENT: hearing grossly normal - Neck Neck: lymphadenopathy - Respiratory Respiratory: bilateral: dullness, rhonchi - Cardiovascular Tachycardia, no murmur leg Peripheral Edema: bilateral: None - Gastrointestinal General gastrointestinal: distended, soft - Neurologic Neurologic: CNII-XII intact (Grossly) - Musculoskeletal Musculoskeletal: generalized weakness, strength equal bilaterally - Psychiatric Psychiatric: A&O x's 3, appropriate affect, intact judgment & insight Results CBC & Chem 7: 05/05/24 05:14 05/05/24 05:14 Labs: Abnormal Lab Results - Last 24 Hours (Table) 05/04/24 05/04/24 05/04/24 Range/Units 18:37 18:37 18:37 RBC 3.53 L (3.80-5.40) m/uL Hgb 11.0 L (11.4-16.0) gm/dL Plt Count 91 L (150-450) k/uL Lymphocytes # 0.9 L (1.0-4.8) k/uL Sodium 133 L (137-145) mmol/L Chloride 94 L (98-107) mmol/L BUN 35 H (7-17) mg/dL Plasma Lactic Acid Mickey 4.8 H* (0.7-2.0) mmol/L Calcium 11.9 H (8.4-10.2) mg/dL AST 68 H (14-36) U/L ALT 40 H (4-34) U/L Alkaline Phosphatase 292 H (38-126) U/L C-Reactive Protein 1.5 H (<1.0) mg/dL Procalcitonin (0.02-0.50) ng/mL 05/04/24 05/04/24 05/05/24 Range/Units 18:37 21:48 05:14 RBC (3.80-5.40) m/uL Hgb (11.4-16.0) gm/dL Plt Count (150-450) k/uL Lymphocytes # (1.0-4.8) k/uL Sodium (137-145) mmol/L Chloride (98-107) mmol/L BUN (7-17) mg/dL Plasma Lactic Acid Mickey 4.6 H* 3.8 H* (0.7-2.0) mmol/L Calcium (8.4-10.2) mg/dL AST (14-36) U/L ALT (4-34) U/L Alkaline Phosphatase (38-126) U/L C-Reactive Protein (<1.0) mg/dL Procalcitonin 1.74 H (0.02-0.50) ng/mL 05/05/24 Range/Units 07:50 RBC (3.80-5.40) m/uL Hgb (11.4-16.0) gm/dL Plt Count (150-450) k/uL Lymphocytes # (1.0-4.8) k/uL Sodium (137-145) mmol/L Chloride (98-107) mmol/L BUN (7-17) mg/dL Plasma Lactic Acid Mickey 3.6 H* (0.7-2.0) mmol/L Calcium (8.4-10.2) mg/dL AST (14-36) U/L ALT (4-34) U/L Alkaline Phosphatase (38-126) U/L C-Reactive Protein (<1.0) mg/dL Procalcitonin (0.02-0.50) ng/mL Comments: PET/CT results reviewed with patient. Assessment and Plan (1) Malignancy Current Visit: Yes Status: Acute Priority: High Code(s): C80.1 - MALIGNANT (PRIMARY) NEOPLASM, UNSPECIFIED SNOMED Code(s): 839150780 Plan: Malignancy -Patient was initially evaluated by medical oncology few weeks ago. -She had a PET CT scan for target for biopsy. Images were reviewed with Radiation Oncologist. Significant disease is noted throughout the body. Pulmonary has assessed the patient, unfortunately, her respiratory status does not permit them to perform a bronchoscopy and biopsy. On exam, patient has subcutaneous nodules, most notably in the right axilla. She also has liver lesions. Pulmonary states some peripheral masses that could be targeted percutaneously. Interventional radiology has been consulted for the same. -Vital signs overall are stable patient does have a significantly elevated lactic acid, but could be related to the overwhelming amount of malignancy she has. She is on antibiotics. Infectious disease consulted. Pancultures pending. She is bicytopenia With a hemoglobin of 9.7 and platelets of 74,000. No transfusions at this time. Continue to monitor blood counts. Radiation oncology has been consulted regarding obstruction in the lungs. -Unfortunately, I believe that patient does not have any family, she does have 2 friends that do help her. We are planning a meeting with the patient and her friends. Her treatment course could potentially be very complicated and it is not clear exactly how much assistance the friends can provide her. That the patient has significant metastatic disease, most likely of a lung primary. If pathology were to reveal a targeted mutation, the patient could potentially have some significant improvement in disease and have a good quality of life for some time being on a targeted agent. Unfortunately, we are not able to say at this time exactly what the treatment options would be. Treatment options though, would be palliative in intent. Not sure physically what type of treatment patient would be able to handle. We are planning to talk with patient and her family tomorrow about her complicated case. We will also offer hospice as an option for care. Will update Attending with what we find out
[2024-05-06] MEDS: HYDROmorphone 0.5 MG/0.5 ML SYRINGE IVP STA (03:22)
[2024-05-06] MEDS: hydroCHLOROthiazide 12.5 MG CAP PO SCH (08:16)
[2024-05-06 08:49] LABS: ALT 39 U/L (8-44); AST 90 U/L (13-35); Albumin/Globulin Ratio 1.25 Ratio (1.60-3.17); Alkaline Phosphatase 268 U/L (41-126); Blood Urea Nitrogen 20.4 mg/dL (9.0-27.0); Calcium 10.9 mg/dL (8.7-10.3); Carbon Dioxide 25.4 mmol/L (21.6-31.8); Chloride 101 mmol/L (96-109); Globulin 2.4 g/dL (1.6-3.3); Glucose 79 mg/dL (70-110); Magnesium 1.7 mg/dL (1.5-2.4); Potassium 3.6 mmol/L (3.5-5.5); Sodium 140 mmol/L (135-145); Total Bilirubin 0.6 mg/dL (0.3-1.2); Total Protein 5.4 g/dL (6.2-8.2)
--- NOTE | 2024-05-06 11:30 | P.CONS ---
History of Present Illness - Reason for Consult Consult date: 05/05/24 dyspnea Requesting physician: Diogenes Patel - Chief Complaint dyspnea, low back pain - History of Present Illness The patient is a 74-year-old female with a [id number] smoking history. She had developed increased dyspnea, weight loss and skeletal pain over the past few months. She was found on imaging to have a large right hilar lesion with innumerable metastasis involving the bones, lung and liver. Biopsy was performed of an axillary lymph node, and we are awaiting her pathology. The patient states that she has had increased difficulty with dyspnea over the past couple of months. She currently lives alone in [place]. She states she was having difficulty ambulating around the house. She reports that she is had increased pain in the low back. An outpatient PET CT was performed on 04/30/2024. This revealed a 10 cm right hilar mass with postobstructive changes. There was a significant burden of metastatic disease noted with almost diffuse bone and liver metastases. The patient was planning to undergo bronchoscopy with biopsy, however the procedure was canceled due to the patient looking ill and concerns for tolerance of anesthesia. She has been hospitalized with concerns for postobstructive pneumonia. Review of Systems Constitutional: Denies fever Ears, nose, mouth and throat: Denies dysphagia Cardiovascular: Reports dyspnea on exertion Respiratory: Reports cough, Reports dyspnea Gastrointestinal: Denies abdominal pain Musculoskeletal: Reports low back pain Integumentary: Denies rash Neurological: Denies confusion, Denies convulsions Past Medical History Past Medical History: COPD, Hyperlipidemia, Hypertension Additional Past Medical History / Comment(s): coughing,shortness of breath, History of Any Multi-Drug Resistant Organisms: None Reported Additional Past Surgical History / Comment(s): lymph node bix in groin Past Anesthesia/Blood Transfusion Reactions: No Reported Reaction Smoking Status: Current every day smoker - Past Family History Father Family Medical History: Cancer Mother Family Medical History: Cancer Medications and Allergies Home Medications Medication Instructions Recorded Confirmed Type Albuterol Inhaler [Ventolin Hfa 1 - 2 puff INHALATION Q6H PRN 05/03/24 05/04/24 History Inhaler] Atorvastatin [Lipitor] 20 mg PO HS 05/03/24 05/04/24 History Fluticasone Propion/Salmeterol 2 puff INHALATION BID 05/03/24 05/04/24 History [Advair Hfa 45-21 Mcg Inhaler] hydroCHLOROthiazide 12.5 mg PO DAILY 05/03/24 05/04/24 History Allergies Allergy/AdvReac Type Severity Reaction Status Date / Time No Known Allergies Allergy Verified 05/04/24 13:09 Physical Exam Vitals: Vital Signs Temp Pulse Pulse Resp BP Pulse Ox 05/06/24 07:52 92 05/06/24 07:38 92 95 05/06/24 07:37 97.6 F 87 17 158/83 95 05/06/24 01:01 97.6 F 88 18 167/87 92 L 05/05/24 19:21 97.6 F 90 20 135/71 94 L 05/05/24 18:30 90 05/05/24 18:20 88 05/05/24 17:05 96 05/05/24 15:19 86 05/05/24 15:09 91 05/05/24 12:09 97.8 F 85 16 128/71 97 05/05/24 11:56 90 05/05/24 11:44 86 Intake and Output 05/05/24 05/06/24 05/06/24 22:59 06:59 14:59 Intake Total 500 480 Balance 500 480 Intake: Intake, IV Titration 500 Amount Lactated Ringers 1,000 ml 300 @ 75 mls/hr IV .[id number] ON LICENSE OF [facility] Rx#:[id number] Piperacillin-Tazobactam 3 200 .375 gm In Sodium Chloride 0.9% 100 ml @ 25 mls/hr IVPB Q8H [facility] Rx#: [id number] Oral 480 Other: Voiding Method Bedside Commode # Voids 1 1 Weight 48.6 kg - Constitutional General appearance: thin - EENT Eyes: EOMI, PERRLA ENT: hearing grossly normal - Neck Neck: no lymphadenopathy - Respiratory Respiratory: bilateral: diminished - Cardiovascular Rhythm: regular - Gastrointestinal General gastrointestinal: no distended, no tenderness - Integumentary Integumentary: pale - Neurologic Neurologic: CNII-XII intact - Musculoskeletal Musculoskeletal: strength equal bilaterally - Psychiatric Psychiatric: A&O x's 3 Results CBC & Chem 7: 05/05/24 05:14 05/06/24 03:50 Labs: Abnormal Lab Results - Last 24 Hours (Table) 05/05/24 05/06/24 Range/Units 13:02 03:50 Anion Gap 13.60 H (4.00-12.00) mmol/L BUN/Creatinine Ratio 34.00 H (12.00-20.00) Ratio Plasma Lactic Acid Mickey 4.0 H* (0.7-2.0) mmol/L Calcium 10.9 H (8.7-10.3) mg/dL AST 90 H (13-35) U/L Alkaline Phosphatase 268 H (41-126) U/L Total Protein 5.4 L (6.2-8.2) g/dL Albumin 3.0 L (3.8-4.9) g/dL Albumin/Globulin Ratio 1.25 L (1.60-3.17) Ratio Microbiology - Last 24 Hours (Table) 05/05/24 17:15 Gram Stain - Preliminary Sputum 05/04/24 18:37 Blood Culture - Preliminary Blood CT Scan - head: report reviewed, image reviewed Assessment and Plan Assessment: The patient is a 74-year-old female with a [id number] smoking history. She had developed increased dyspnea, weight loss and skeletal pain over the past few months. She was found on imaging to have a large right hilar lesion with innumerable metastasis involving the bones, lung and liver. Biopsy was performed of an axillary lymph node, and we are awaiting her pathology. Plan: 1. Dyspnea: Likely secondary to the underlying lung cancer and possible postobstructive pneumonia. Patient reports she is fairly comfortable with oxygen support currently. However, she is not really moving around, which previously exacerbated her dyspnea. 2. Low back pain: The patient has diffuse skeletal metastasis including the sacrum and lumbar spine. These could be contributing to her low back pain. 3. Metastatic cancer: As noted above, the patient's clinical picture is highly suspicious for an underlying lung primary cancer with a high burden of meta static disease. I'll discuss her care further with medical oncology. While we certainly could have the patient undergo some palliative treatment to the lung or even the L-spine, she has a significant burden of metastatic disease. It is perhaps more important for the patient to start systemic therapy as soon as possible. We will look for a preliminary biopsy result. Time with Patient: Less than 30
[2024-05-06] MEDS: DOCUSATE 100 MG CAP PO SCH (11:50)
[2024-05-06 12:16] LABS: Basophils # (A) 0.05 X 10*3/uL (0.00-0.10); Basophils % (A) 0.6 %; Eosinophils # (A) 0.05 X 10*3/uL (0.04-0.35); Eosinophils % (A) 0.6 %; HCT 30.1 % (37.2-46.3); HGB 9.6 g/dL (12.0-15.0); Immature Platelet Fraction 7.1 % (1.1-6.1); Lymphocytes # (A) 0.91 X 10*3/uL (0.90-5.00); Lymphocytes % (A) 10.8 %; MCH 31.7 pg (27.0-32.0); MCHC 31.9 g/dL (32.0-37.0); MCV 99.3 FL (80.0-97.0); Mean Platelet Volume 11.7 FL (9.5-12.2); Monocytes # (A) 0.73 X 10*3/uL (0.20-1.00); Monocytes % (A) 8.7 %; NRBC Per 100 WBC 0 X 10*3/uL (0.00-0.01); Neutrophils # (A) 6.56 X 10*3/uL (1.80-7.70); Platelet Count 50 X 10*3/uL (140-440); RBC 3.03 X 10*6/uL (4.10-5.20); RDW 15.7 % (11.5-14.5); WBC 8.41 X 10*3/uL (4.50-10.00)
[2024-05-06 13:35] LABS: Mean Platelet Volume 8.4
[2024-05-06 13:40] LABS: Platelet Count 37 k/uL (150-450)
[2024-05-06 13:44] LABS: Prothrombin Time 11.2 sec (10.0-12.5)
--- NOTE | 2024-05-06 13:47 | CDI ---
Documentation Clarification Form Date: 05/06/2024 01:26:21 PM From: Mary Ann Gabriel RN, CCDS Phone: [phone] Admit Date: 05/04/2024 12:39:00 PM Patient Name: Salome Villegas Visit Number: [id number] Discharge Date: ATTENTION: The Clinical Documentation Specialists (CDI) and [facility] Coding Staff appreciate your assistance in clarifying documentation. Please respond to the clarification below the line at the bottom and electronically sign. The CDI & [facility] Coding staff will review the response and follow-up if needed. Please note: Queries are made part of the Legal Health Record. If you have any questions, please contact the author of this message via ITS. Doctor. Tad Coello The Registered Dietitian assessment on 05/05/24 indicates this patient meets criteria for malnutrition acute, severe. Based on this information and the findings below, is there an additional diagnosis that is clinically appropriate for this patient? History/Risk Factors: abnormal finding of lung Malignancy, COPD HTN, Lung mass, Current smoker Clinical Indicators: 74-year-old female present fob bronchoscopy and biopsy with history of progressive cough with dyspnea She looks quite cachectic. Underweight, Decreased intake BMI 19 Duration 1 month 12.5% weight loss consuming <50% EEN RD Consult Assessment: Malnutrition acute, severe Treatment: General/Healthful diet Commerical beverage Ensure enlive TID Is there an additional diagnosis that is clinically appropriate for this patient? [ ] Mild Protein-Calorie Malnutrition [ ] Moderate Protein-Calorie Malnutrition [ x ] Severe Protein-Calorie Malnutrition [ ] No additional diagnosis/Not clinically significant [ ] Other condition, please specify [ ] Unable to Determine (Template Last Revised: August 2022) MTDD
--- NOTE | 2024-05-06 15:28 | P.PN ---
Subjective Progress Note Date: 05/06/24 Principal diagnosis: Reason for follow-up is fever/postobstructive pneumonia Patient is a 74-year-old female with a past medical history negative for COPD hypertension hyperlipidemia currently with a smoker admitted to hospital with fever concerning for postobstructive pneumonia. On today's evaluation that is 05/06/2024,the patient did have resolution of her fever and is afebrile today, patient is on 2 L nasal cannula supplemental oxygen and denies any shortness of breath no chest pain or cough.Patient denies having any nausea or vomiting, no abdominal pain and no diarrhea has been reported. Patient white count 8.41 creatinine 0.6 cultures currently pending Objective - Vital Signs Vital signs: Vital Signs Temp 98.4 F 05/06/24 12:28 Pulse 89 05/06/24 12:28 Resp 17 05/06/24 12:28 BP 146/75 05/06/24 12:28 Pulse Ox 96 05/06/24 12:28 FiO2 Intake & Output 05/05/24 05/06/24 05/06/24 18:59 06:59 18:59 Intake Total 500 480 Balance 500 480 Weight 48.6 kg Intake: Intake, IV Titration 500 Amount Lactated Ringers 1,000 ml 300 @ 75 mls/hr IV .[id number] [facility] Rx#:[id number] Piperacillin-Tazobactam 3 200 .375 gm In Sodium Chloride 0.9% 100 ml @ 25 mls/hr IVPB Q8H [facility] Rx#: [id number] Oral 480 Other: Voiding Method Toilet Bedside Commode Bedside Commode # Voids 1 1 - Exam GENERAL DESCRIPTION: An elderly female lying in bed in no distress RESPIRATORY SYSTEM: Unlabored breathing , decreased breath sounds at bases HEART: S1 S2 regular rate and rhythm , ABDOMEN: Soft , no tenderness EXTREMITIES: No edema feet - Labs CBC & Chem 7: 05/06/24 13:07 05/06/24 03:50 Labs: Abnormal Lab Results - Last 24 Hours (Table) 05/06/24 05/06/24 05/06/24 Range/Units 03:50 03:50 13:07 RBC 3.03 L (4.10-5.20) X 10*6/uL Hgb 9.6 L (12.0-15.0) g/dL Hct 30.1 L (37.2-46.3) % MCV 99.3 H (80.0-97.0) FL MCHC 31.9 L (32.0-37.0) g/dL RDW 15.7 H (11.5-14.5) % Plt Count 50 L 37 L D (140-440) X 10*3/uL Immature Gran # 0.11 H (0.00-0.04) X 10*3/uL Immature Plt Fraction 7.1 H (1.1-6.1) % Anion Gap 13.60 H (4.00-12.00) mmol/L BUN/Creatinine Ratio 34.00 H (12.00-20.00) Ratio Calcium 10.9 H (8.7-10.3) mg/dL AST 90 H (13-35) U/L Alkaline Phosphatase 268 H (41-126) U/L Total Protein 5.4 L (6.2-8.2) g/dL Albumin 3.0 L (3.8-4.9) g/dL Albumin/Globulin Ratio 1.25 L (1.60-3.17) Ratio Microbiology - Last 24 Hours (Table) 05/05/24 17:15 Gram Stain - Preliminary Sputum 05/04/24 18:37 Blood Culture - Preliminary Blood Assessment and Plan (1) Postobstructive pneumonia Current Visit: Yes Status: Acute Code(s): J18.9 - PNEUMONIA, UNSPECIFIED ORGANISM SNOMED Code(s): 719156602 Plan: 1patient presented to hospital with sepsis in this patient noted to have fever tachycardia elevated lactic acid source likely pneumonia and likely concerning for postobstructive pneumonia for which will need to cover for the polymicrobial felicia especially Associated with such infection 2-blood sputum culture obtained which are currently pending 3-patient did have improvement in her fever pattern we will continue with Zosyn while waiting for the culture to finalize Dictation was produced using [employer] dictation software. please excuse any grammatical, word or spelling errors. Time with Patient: Less than 30
--- NOTE | 2024-05-06 16:14 | P.PN ---
Subjective Progress Note Date: 05/06/24 Hospital Course: Patient is a 74-year-old female with history of COPD (not on home oxygen), hyperlipidemia, hypertension was supposed to undergo bronchoscopy and EBUS with Dr. Mcdonald today on an outpatient basis due to recent abnormal low-dose CAT scan of the lung and PET scan. Patient is admitted to the hospital because she has been feeling short of breath which has been getting progressively worse associated with cough and congestion. The procedure has been postponed. Patient has significant smoking history and over the past 6 months she has been experiencing progressively worsening exertional dyspnea and unintentional weight loss. Initial laboratory evaluation 10.9, WBC 9.4, hemoglobin 11.0, hematocrit 34.9, platelet count 91, sodium 133, chloride 94, BUN 35, creatinine 0.77, EGFR 77, l actic acid 4.6, calcium 9.9, AST 68, ALT 40, ALP 292, C-reactive protein 1.5, procalcitonin 1.74. Influenza type A, B, RSV, COVID-[address] shows no acute cranial process, scattered lucent lesions throughout the skull compatible with metastatic disease seen on prior PET, nonspecific white matter changes, likely secondary to chronic small vessel ischemic disease. Axillary ultrasound shows right axillary lymph node. Vital signs on arrival shows temperature 99.9 F, pulse rate 112, respiratory rate 22, blood pressure 152/82, oxygen saturation 91% on room air Subjective: Patient seen and examined at the bedside. No acute events overnight. Patient is fairly comfortable with 2 L of oxygen via nasal cannula. Patient is complaining of chronic back pain. All Systems reviewed and pertinent positives and negatives noted in HPI, all other symptoms are negative Objective: Vital signs reviewed. Physical examination: Vital signs reviewed General: Chronically ill looking and cachectic Derm: no unusual rashes/lesions, warm Head: atraumatic, normocephalic, symmetric Eyes: EOMI, no lid lag, anicteric sclera, pupils equal round reactive to light ENT: Nose and ears atraumatic Neck: No cervical lymphadenopathy, trachea midline, supple Mouth: no lip lesion, mucus membranes moist Cardiovascular: S1S2 reg, no murmur, positive dorsalis pedis pulse bilateral, no edema Lungs: CTAB, no wheezing or rales or crackles noted. Abdominal: soft, nontender to palpation, no guarding Ext: muscle strength 5 out of 5 in all 4 extremities grossly, no gross muscle atrophy, no contractures, Neuro: CN II-XI grossly intact, no gross focal neuro deficits Psych: Alert, oriented, appropriate affect Data reviewed today: Pertinent labs: WBC 8.41, hemoglobin 9.6, platelet count 50, sodium 140, potassium 3.6, calcium 10.9, AST 90, ALT 39, ALP 268 Images: No new imaging Assessment and Plan: #Lung mass, likely metastatic #Acute hypoxemic respiratory failure in the setting of likely metastatic lung disease #Lactic acidosis secondary to above #Hypercalcemia secondary above #Elevated procalcitonin #Thrombocytopenia #Normocytic anemia Pulmonology on board; appreciate recs Radiation oncology and medical oncology on board; appreciate recs Infectious disease on board; appreciate recs Interventional radiology on board; appreciate recs Oxygen therapy as needed Continue with Symbicort and albuterol inhalers Continue with DuoNebs scheduled and [id number] Continue with Zosyn 3.375 g IVP every 8 hour Lactated Ringer's at 75 cc/h Monitor CBC Platelet transfusion if platelet count below 20 #Transaminases in the setting of likely metastatic lung disease Monitor CMP #Chronic back pain secondary to metastatic bone lesion Pain management with [place] as needed Consider adding Dilaudid if pain is not controlled Chronic conditions: Resume home medications DVT prophylaxis: Subcu heparin GI prophylaxis: None F: LR at 75 cc/h E: Replete as needed N: Regular diet A: Ambulatory at baseline The patient is admitted with an anticipated more than than 2 midnight stay for evaluation of metastatic lung disease CODE STATUS: No code Discussed with: Patient Anticipated discharge place: Pending clinical course Dictation was produced using [employer] dictation software. Please excuse any gram matical, word or spelling errors. Attestation I have seen and examined this patient with my resident , discussed the same with the resident/RADHA, and agree with the dictator's assessment and plan as written GENERAL: The patient is alert and oriented x3, ill looking HEENT: Pupils are round and equally reacting to light. EOMI. No scleral icterus. No conjunctival pallor. Normocephalic, atraumatic. No pharyngeal erythema. No thyromegaly. CARDIOVASCULAR: S1 and S2 present. No murmurs, rubs, or gallops. PULMONARY: Coarse breath sound bilaterally, rhonchi audible bilaterally ABDOMEN: Soft, nontender, nondistended, normoactive bowel sounds. No palpable organomegaly. MUSCULOSKELETAL: No joint swelling or deformity. EXTREMITIES: No cyanosis, clubbing, or pedal edema. NEUROLOGICAL: Gross neurological examination did not reveal any focal deficits. SKIN: No rashes. Dr. Tad villafana Objective - Vital Signs Vital signs: Vital Signs Temp 98.4 F 05/06/24 12:28 Pulse 88 05/06/24 15:32 Resp 17 05/06/24 12:28 BP 146/75 05/06/24 12:28 Pulse Ox 96 05/06/24 12:28 FiO2 Intake & Output 05/05/24 05/06/24 05/06/24 18:59 06:59 18:59 Intake Total 500 480 Output Total 540 Balance 500 480 -540 Weight 48.6 kg Intake: Intake, IV Titration 500 Amount Lactated Ringers 1,000 ml 300 @ 75 mls/hr IV .[id number] [facility] Rx#:[id number] Piperacillin-Tazobactam 3 200 .375 gm In Sodium Chloride 0.9% 100 ml @ 25 mls/hr IVPB Q8H [facility] Rx#: [id number] Oral 480 Output: Urine 540 Other: Voiding Method Toilet Bedside Commode Bedside Commode # Voids 1 1 - Labs CBC & Chem 7: 05/08/24 05:29 05/08/24 05:29 Labs: Abnormal Lab Results - Last 24 Hours (Table) 05/06/24 05/06/24 05/06/24 Range/Units 03:50 03:50 13:07 RBC 3.03 L (4.10-5.20) X 10*6/uL Hgb 9.6 L (12.0-15.0) g/dL Hct 30.1 L (37.2-46.3) % MCV 99.3 H (80.0-97.0) FL MCHC 31.9 L (32.0-37.0) g/dL RDW 15.7 H (11.5-14.5) % Plt Count 50 L 37 L D (140-440) X 10*3/uL Immature Gran # 0.11 H (0.00-0.04) X 10*3/uL Immature Plt Fraction 7.1 H (1.1-6.1) % Anion Gap 13.60 H (4.00-12.00) mmol/L BUN/Creatinine Ratio 34.00 H (12.00-20.00) Ratio Calcium 10.9 H (8.7-10.3) mg/dL AST 90 H (13-35) U/L Alkaline Phosphatase 268 H (41-126) U/L Total Protein 5.4 L (6.2-8.2) g/dL Albumin 3.0 L (3.8-4.9) g/dL Albumin/Globulin Ratio 1.25 L (1.60-3.17) Ratio Microbiology - Last 24 Hours (Table) 05/05/24 17:15 Gram Stain - Preliminary Sputum 05/04/24 18:37 Blood Culture - Preliminary Blood
--- NOTE | 2024-05-06 17:51 | P.PN ---
Subjective Progress Note Date: 05/06/24 Principal diagnosis: Metastatic disease, needs biopsy, pain control In f/u today pt is less agitated then yesterday but, is still very uncomfortable, generalized body aches, unable to get comfortable. No fevers, poor appetite. She knows that her resp status is not stable enough for bronch and biopsy, we are with IR to locate another target. Objective - Vital Signs Vital signs: Vital Signs Temp 98.4 F 05/06/24 12:28 Pulse 88 05/06/24 15:32 Resp 17 05/06/24 12:28 BP 146/75 05/06/24 12:28 Pulse Ox 96 05/06/24 12:28 FiO2 Intake & Output 05/05/24 05/06/24 05/06/24 18:59 06:59 18:59 Intake Total 500 480 Output Total 540 Balance 500 480 -540 Weight 48.6 kg Intake: Intake, IV Titration 500 Amount Lactated Ringers 1,000 ml 300 @ 75 mls/hr IV .[id number] [facility] Rx#:[id number] Piperacillin-Tazobactam 3 200 .375 gm In Sodium Chloride 0.9% 100 ml @ 25 mls/hr IVPB Q8H [facility] Rx#: [id number] Oral 480 Output: Urine 540 Other: Voiding Method Toilet Bedside Commode Bedside Commode # Voids 1 1 - Constitutional General appearance: Present: cooperative, mild distress, thin - EENT Eyes: Present: anicteric sclerae, EOMI ENT: Present: hearing grossly normal - Respiratory Respiratory: right: diminished - Cardiovascular Rhythm: regular Heart sounds: normal: S1, S2 Abnormal Heart Sounds: Absent: systolic murmur, diastolic murmur, rub, S3 Gallop, S4 Gallop, click, other - Peripheral edema leg Peripheral Edema: bilateral: None - Gastrointestinal Gastrointestinal Comment(s): no distension of the abd, it is however firm all over - Neurologic Neurologic: Present: CNII-XII intact (grossly) - Musculoskeletal Musculoskeletal: Present: generalized weakness, strength equal bilaterally - Psychiatric Psychiatric Comment(s): anxious Psychiatric: Present: A&O x's 3, intact judgment & insight - Labs CBC & Chem 7: 05/06/24 13:07 05/06/24 03:50 Labs: Abnormal Lab Results - Last 24 Hours (Table) 05/06/24 05/06/24 05/06/24 Range/Units 03:50 03:50 13:07 RBC 3.03 L (4.10-5.20) X 10*6/uL Hgb 9.6 L (12.0-15.0) g/dL Hct 30.1 L (37.2-46.3) % MCV 99.3 H (80.0-97.0) FL MCHC 31.9 L (32.0-37.0) g/dL RDW 15.7 H (11.5-14.5) % Plt Count 50 L 37 L D (140-440) X 10*3/uL Immature Gran # 0.11 H (0.00-0.04) X 10*3/uL Immature Plt Fraction 7.1 H (1.1-6.1) % Anion Gap 13.60 H (4.00-12.00) mmol/L BUN/Creatinine Ratio 34.00 H (12.00-20.00) Ratio Calcium 10.9 H (8.7-10.3) mg/dL AST 90 H (13-35) U/L Alkaline Phosphatase 268 H (41-126) U/L Total Protein 5.4 L (6.2-8.2) g/dL Albumin 3.0 L (3.8-4.9) g/dL Albumin/Globulin Ratio 1.25 L (1.60-3.17) Ratio Microbiology - Last 24 Hours (Table) 05/05/24 17:15 Gram Stain - Preliminary Sputum 05/04/24 18:37 Blood Culture - Preliminary Blood Assessment and Plan (1) Malignancy Current Visit: Yes Status: Acute Priority: High Code(s): C80.1 - MALIGNANT (PRIMARY) NEOPLASM, UNSPECIFIED SNOMED Code(s): 152625357 Plan: Malignancy -Patient was initially evaluated by medical oncology few weeks ago. -She had a PET CT scan for target for biopsy. Images were reviewed with Radiation Oncologist. Significant disease is noted throughout the body. Pulmonary has assessed the patient, unfortunately, her respiratory status does not permit them to perform a bronchoscopy and biopsy. On exam, patient has subcutaneous nodules, most notably in the right axilla,this has been biopsied before-IR took a look at it and there is a clip. Pt reports that the biopsy was benign. Looking for another target, IR reports liver lesions are amenable. Pt is ok with liver biopsy -Vital signs overall are stable patient does have a significantly elevated lactic acid, but could be related to the overwhelming amount of malignancy she has. She is on antibiotics. Infectious disease as seen her. Pancultures pending. She has bicytopenia With a hemoglobin of 9.7 and platelets dropped to 37,000 today. Pt will need platelets for liver biopsy in AM. These are ordered to be transfused during procedure. -Radiation oncology has seen pt. They will follow with pt for palliative radiation as needed. -Unfortunately, I believe that patient does not have any family, she does have 2 friends that do help her. I asked her today who she would like me to speak with and she stated [place]. -Reviewed clinical course with [place] on the phone. Reviewed PET scan results, plans for biopsy, suspicions for metastatic lung cancer, treatment options- including non-chemo options like IO and oral targeted therapies if pt qualified- as well as the intent of any treatment would be palliative in nature. Unfortunately, we are not able to say at this time exactly what the treatment options would be. Pending biopsy and path. Asked he friend what she thinks pt could handle. [place] stated pt lives alone up in [place], not a lot of support but, her estranged brother has been around the last few weeks checking on her. Will keep [place] updated.
[2024-05-06] MEDS: MORPHINE SULFATE 4 MG/ML SYRINGE IVP PRN (20:49)
[2024-05-06] MEDS: HYDROcodone/APAP 7.5-325MG 1 EACH TAB PO PRN (22:49)
--- NOTE | 2024-05-06 23:19 | P.PN ---
Subjective Progress Note Date: 05/06/24 This is a 74-year-old female patient who came in today to undergo the bronchoscopy and endobronchial ultrasound for tissue diagnosis regarding possibility of lung cancer the patient was found to have an abnormal CAT scan of the chest that was done on outpatient basis. The patient was saw me in the office approximately a week ago and she was referred to me for an abnormal CAT scan of the chest and shortness of breath. She is a [id number] smoking history and over the past 6 months the patient has been getting progressively more short of breath experiencing exertional dyspnea without hemoptysis. She also had an unexplained weight loss. She had diffuse body aches including pain in her mid back, lower spinal region and upper neck area. Noted the patient had a low-dose CAT scan of the chest that was done on 04/08/2024 and the patient was found to have a large mass measuring up to 7 cm in size in the right lower lobe causing narrowing of the right lower lobe bronchus and tapering of the bronchus intermedius and the patient had atelectatic change in the right lung base posteriorly. There was also evidence of mediastinal lymphadenopathy involving the subcarinal and paratracheal area and there was also abnormalities in the sixth and seventh rib on the right consistent with metastatic disease. There was also disease involving the L2 vertebral spine superior endplate consistent with metastatic disease. Her FEV1 was 34% of predicted and the patient was taken Advair. The patient was supposed to undergo a bronchoscopy today. She arrived and she was hypoxic and she was febrile and she was having increased cough and congestion and shortness of breath. Based on that, the procedure was canceled. A PET scan was also done on 04/30/2024 and the findings were considered to be abnormal. There was extensive metastatic disease with FDG uptake with large conglomeration of uptake in the right lower lobe mass extending to the right hilar in addition to FDG avid mediastinal, right axillary, periaortic node adenopathy and multiple innumerable FDG activity in the liver and diffuse osseous metastatic lytic lesions. There is also an abrupt cut off on the right lower lobe bronchus and postobstructive pneumonia changes. Based on that, I canceled the procedure and admitted this patient to the hospital. The patient is currently on 2 L of oxygen by nasal cannula with a pulse ox of 98%. Her temperature is at 100.0. On today's evaluation of 05/05/2024, the patient slightly large short of breath compared to yesterday. The patient is afebrile and currently is on 2 L of oxygen by nasal cannula. Awaiting an oncology consultation. Lactic acid level remains elevated at 4. The white cell count of 8.5 with a hemoglobin 9.7 and a platelet count of 74. Electrolytes are all stable. Viral screen has been negative. The patient remains on IV Zosyn for postobstructive pneumonia. She r emains on DuoNeb. She is on [place] for pain control. He is also on lactated Ringer at rate of 75 cc an hour. On 05/06/2024, condition is essentially same unchanged. She remains on 2 L with a pulse ox of 92%. The patient has metastatic disease and she has not established tissue diagnosis yet. She is still very uncomfortable and she continues to have generalized bodyaches and she is unable to get herself comfortable. No fever. She has a poor appetite. Working for interventional radiology to establish a fine-needle aspirate for a biopsy. As mentioned earlier, the patient is very ill qualified for any treatment especially the patient lives in [place] without any significant social support system. Patient was also seen by radiation oncology. The white cell count of 8.4, hemoglobin 9.6 and a platelet count of 37. Normal c electrolytes. Calcium level is at 10.9. Objective - Vital Signs Vital signs: Vital Signs Temp 99.1 F 05/06/24 19:26 Pulse 100 05/06/24 19:26 Resp 20 05/06/24 19:26 BP 160/73 05/06/24 19:26 Pulse Ox 92 L 05/06/24 19:26 FiO2 Intake & Output 05/06/24 05/06/24 05/07/24 06:59 18:59 06:59 Intake Total 480 1080 Balance 480 1080 Intake: Oral 480 1080 Other: Voiding Method Bedside Commode # Voids 1 3 1 - Exam The patient appeared ill looking, currently on 2 L of oxygen by nasal cannula. Some mild shortness of breath even at rest. She looks quite cachectic. Body mass index is 19. Head exam is unremarkable. No scleral icterus or corneal arcus noted. Neck is without jugular venous distension, thyromegaly, or carotid bruits. Carotid upstrokes are brisk bilaterally. Lungs show diminished breath sounds bilateral especially in the right lung base along with scattered expiratory wheezes Cardiac exam reveals the PMI to be normally sized and situated. Rhythm is regular. First and second heart sounds normal. No murmurs, rubs or gallops. Abdominal exam reveals normal bowel sounds, no masses, no organomegaly and no aortic enlargement. Extremities are nonedematous and both femoral and pedal pulses are normal. Examination of the skin revealed no evidence of significant rashes, suspicious appearing nevi or other concerning lesions. Neurologically, the patient is awake and alert and the patient does not have any focal neurological deficit. Cranial nerves are essentially intact. - Labs CBC & Chem 7: 05/06/24 13:07 05/06/24 03:50 Labs: Abnormal Lab Results - Last 24 Hours (Table) 05/06/24 05/06/24 05/06/24 Range/Units 03:50 03:50 13:07 RBC 3.03 L (4.10-5.20) X 10*6/uL Hgb 9.6 L (12.0-15.0) g/dL Hct 30.1 L (37.2-46.3) % MCV 99.3 H (80.0-97.0) FL MCHC 31.9 L (32.0-37.0) g/dL RDW 15.7 H (11.5-14.5) % Plt Count 50 L 37 L D (140-440) X 10*3/uL Immature Gran # 0.11 H (0.00-0.04) X 10*3/uL Immature Plt Fraction 7.1 H (1.1-6.1) % Anion Gap 13.60 H (4.00-12.00) mmol/L BUN/Creatinine Ratio 34.00 H (12.00-20.00) Ratio Calcium 10.9 H (8.7-10.3) mg/dL AST 90 H (13-35) U/L Alkaline Phosphatase 268 H (41-126) U/L Total Protein 5.4 L (6.2-8.2) g/dL Albumin 3.0 L (3.8-4.9) g/dL Albumin/Globulin Ratio 1.25 L (1.60-3.17) Ratio Microbiology - Last 24 Hours (Table) 05/05/24 17:15 Gram Stain - Preliminary Sputum 05/04/24 18:37 Blood Culture - Preliminary Blood Assessment and Plan Plan: Diffuse metastatic disease with a large right lower lobe mass extending to the right hilum causing abrupt cut off sign of the right lower lobe bronchus in addition to significant atelectatic change in the right lung base and a postobstructive pneumonia. In addition, the patient has diffuse metastases involving the skeletal system, liver and mediastinal nodes. This obviously carries a very poor prognosis. Highly suspect primary lung cancer with diffuse metastases. Postobstructive pneumonia in the right lower lobe Acute hypoxic respiratory failure currently on 2 L of oxygen by nasal cannula Shortness of breath secondary to above COPD with an FEV1 of 34% predicted Chronic debility and ongoing weight loss secondary to above Skeletal pain secondary to diffuse metastases Hypertension Hyperlipidemia History of smoking Lactic acidosis, mild Hypocalcemia Thrombocytopenia Plan Continues to have diffuse skeletal pain, cannot get herself comfortable. Pain management will be needed. Continues to have mild lactic acidosis Monitor calcium level Unable to perform bronchoscopy and endobronchial ultrasound for tissue diagnosis. The patient seems to be quite debilitated and she carries a high risk of developing respiratory failure if the procedure is performed under general anesthesia Pending oncology Continue IV Zosyn for postobstructive pneumonia Continue DuoNeb treatments [id number] and Symbicort LR at rate of 75 cc an hour CAT scan of the brain shows no [employer] metastases. There is mass to the scalp. If tissue diagnosis is needed, recommend a fine-needle aspirate [facility] of various subcutaneous masses including a lesion that is accessible in the anterior sternal area as noted on the PET scan. The patient is very ill qualifies for any further diagnostics or treatment. She has a very poor support system. She lives in [place]. Oncology on the ca se. Radiation oncology is also on the case Strongly advised hospice care. This was explained to the caregiver friend. Time with Patient: Greater than 30
[2024-05-07] MEDS: ALBUTEROL HFA INHALER INHALATION PRN (03:16)
[2024-05-07 08:14] LABS: Blood Urea Nitrogen 14.9 mg/dL (9.0-27.0); Calcium 10.7 mg/dL (8.7-10.3); Carbon Dioxide 24.4 mmol/L (21.6-31.8); Chloride 99 mmol/L (96-109); Glucose 73 mg/dL (70-110); Potassium 3.5 mmol/L (3.5-5.5); Sodium 138 mmol/L (135-145)
[2024-05-07] MEDS: HYDROmorphone 0.5 MG/0.5 ML SYRINGE IVP PRN (09:40)
[2024-05-07 10:44] LABS: Basophils # (A) 0.05 X 10*3/uL (0.00-0.10); Basophils % (A) 0.6 %; Eosinophils # (A) 0.11 X 10*3/uL (0.04-0.35); Eosinophils % (A) 1.4 %; HCT 28.4 % (37.2-46.3); HGB 9.3 g/dL (12.0-15.0); Lymphocytes % (A) 10.1 %; MCHC 32.7 g/dL (32.0-37.0); MCV 97.6 FL (80.0-97.0); Mean Platelet Volume 12.9 FL (9.5-12.2); Monocytes % (A) 7.6 %; NRBC Per 100 WBC 0.02 X 10*3/uL (0.00-0.01); Neutrophils # (A) 6.12 X 10*3/uL (1.80-7.70); Neutrophils % (A) 77.6 %; Platelet Count 19 X 10*3/uL (140-440); RBC 2.91 X 10*6/uL (4.10-5.20); RBC Morphology Normal (Normal); RDW 15.7 % (11.5-14.5); WBC 7.89 X 10*3/uL (4.50-10.00)
--- NOTE | 2024-05-07 13:39 | US ---
EXAMINATION TYPE: US biopsy liver DATE OF EXAM: 05/07/2024 10:00 AM COMPARISON: PET/CT dated 04/29/2024 CLINICAL INDICATION:Female, 74 years old with history of liver lesion; , PROCEDURE: Informed consent was obtained. The risks and benefits of the procedure were discussed with the patien t. The site was marked. Platelets were administered during the course of the study given low platelet count. Timeout procedure was performed Ultrasound imaging demonstrates innumerable hepatic masses. The patient was prepped, draped in the usual sterile fashion, and locally anesthetized with 1% lidoca ine. A single core biopsy was obtained with a 18-gauge Bard needle.. Sample was sent to the patholog y department for further analysis. Patient tolerated the procedure without incident and was sent caterina e in stable condition. IMPRESSION: Successful ultrasound guided biopsy of the liver with pathology results pending. [facility] Ashtyn Marrufo, , 05/07/2024 1:37 PM
--- NOTE | 2024-05-07 14:26 | P.PN ---
Subjective Progress Note Date: 05/07/24 Hospital Course: Patient is a 74-year-old female with history of COPD (not on home oxygen), hyperlipidemia, hypertension was supposed to undergo bronchoscopy and EBUS with Dr. Mcdonald today on an outpatient basis due to recent abnormal low-dose CAT scan of the lung and PET scan. Patient is admitted to the hospital because she has been feeling short of breath which has been getting progressively worse associated with cough and congestion. The procedure has been postponed. Patient has significant smoking history and over the past 6 months she has been experiencing progressively worsening exertional dyspnea and unintentional weight loss. Initial laboratory evaluation 10.9, WBC 9.4, hemoglobin 11.0, hematocrit 34.9, platelet count 91, sodium 133, chloride 94, BUN 35, creatinine 0.77, EGFR 77, l actic acid 4.6, calcium 9.9, AST 68, ALT 40, ALP 292, C-reactive protein 1.5, procalcitonin 1.74. Influenza type A, B, RSV, COVID-[address] shows no acute cranial process, scattered lucent lesions throughout the skull compatible with metastatic disease seen on prior PET, nonspecific white matter changes, likely secondary to chronic small vessel ischemic disease. Axillary ultrasound shows right axillary lymph node. Vital signs on arrival shows temperature 99.9 F, pulse rate 112, respiratory rate 22, blood pressure 152/82, oxygen saturation 91% on room air Subjective: Patient seen and examined at the bedside. No acute events overnight. Patient had a liver biopsy done today, awaiting results. Patient is fairly comfortable with 2 L of oxygen via nasal cannula. However continues to complain of generalized aches and pain especially her chronic back pain. Patient also recei rhiannon a unit of platelet this morning. Her platelets this morning were 19. No acute bleeding. Prognosis is guarded. All Systems reviewed and pertinent positives and negatives noted in HPI, all other symptoms are negative Objective: Vital signs reviewed. Physical examination: Vital signs reviewed General: Chronically ill looking and cachectic Derm: no unusual rashes/lesions, warm Head: atraumatic, normocephalic, symmetric Eyes: EOMI, no lid lag, anicteric sclera, pupils equal round reactive to light ENT: Nose and ears atraumatic Neck: No cervical lymphadenopathy, trachea midline, supple Mouth: no lip lesion, mucus membranes moist Cardiovascular: S1S2 reg, no murmur, positive dorsalis pedis pulse bilateral, no edema Lungs: CTAB, no wheezing or rales or crackles noted. Abdominal: soft, nontender to palpation, no guarding, incision site for biopsy is clean and dry. Ext: muscle strength 5 out of 5 in all 4 extremities grossly, no gross muscle atrophy, no contractures, Neuro: CN II-XI grossly intact, no gross focal neuro deficits Psych: Alert, oriented, appropriate affect Data reviewed today: Pertinent labs: Platelet count 19, hemoglobin 9.3, WBC 7.9, BUN 9.9, creatinine 0.5 Images: No new imaging Assessment and Plan: #Lung mass, likely metastatic #Acute hypoxemic respiratory failure in the setting of likely metastatic lung disease #Lactic acidosis secondary to above #Hypercalcemia secondary above #Elevated procalcitonin #Thrombocytopenia #Normocytic anemia Pulmonology on board; appreciate recs Radiation oncology and medical oncology on board; appreciate recs Infectious disease on board; appreciate recs Interventional radiology on board; appreciate recs; ultrasound-guided liver biopsy done today, awaiting results Oxygen therapy as needed Continue with Symbicort and albuterol inhalers Continue with DuoNebs scheduled and [id number] Continue with Zosyn 3.375 g IVP every 8 hour Lactated Ringer's at 75 cc/h Monitor CBC Platelet transfusion if platelet count below 20; status post 1 unit; order additional 1 unit Monitor PT/INR CBC in p.m. #Transaminases in the setting of likely metastatic lung disease Monitor CMP #Chronic back pain secondary to metastatic bone lesion Pain management with [place], Dilaudid, morphine as needed Chronic conditions: Resume home medications DVT prophylaxis: Subcu heparin GI prophylaxis: None F: LR at 75 cc/h E: Replete as needed N: Regular diet A: Ambulatory at baseline CODE STATUS: No code Discussed with: Patient Anticipated discharge place: Pending clinical course Dictation was produced using [employer] dictation software. Please excuse any grammatical, word or spelling errors. Attestation I have seen and examined this patient with my resident , discussed the same with the resident/RADHA, and agree with the dictator's assessment and plan as written GENERAL: The patient is alert and oriented x3, ill looking HEENT: Pupils are round and equally reacting to light. EOMI. No scleral icterus. No conjunctival pallor. Normocephalic, atraumatic. No pharyngeal erythema. No thyromegaly. CARDIOVASCULAR: S1 and S2 present. No murmurs, rubs, or gallops. PULMONARY: Tachypneic, coarse breath sound bilateral ABDOMEN: Soft, nontender, nondistended, normoactive bowel sounds. No palpable organomegaly. MUSCULOSKELETAL: No joint swelling or deformity. EXTREMITIES: No cyanosis, clubbing, or pedal edema. NEUROLOGICAL: Gross neurological examination did not reveal any focal deficits. SKIN: No rashes. Dr. Tad villafana Objective - Vital Signs Vital signs: Vital Signs Temp 97.9 F 05/07/24 11:00 Pulse 99 05/07/24 13:00 Resp 18 05/07/24 11:00 BP 145/74 05/07/24 13:00 Pulse Ox 95 05/07/24 13:00 FiO2 Intake & Output 05/06/24 05/07/24 05/07/24 18:59 06:59 18:59 Intake Total 1080 354 Balance 1080 354 Intake: Oral 1080 Blood Product 354 Platelet Pheresis Pas 354 Psoralen Unit [id number] Other: Voiding Method Bedside Commode Bedside Commode Bedside Commode # Voids 3 2 1 - Labs CBC & Chem 7: 05/08/24 05:29 05/08/24 05:29 Labs: Abnormal Lab Results - Last 24 Hours (Table) 05/07/24 05/07/24 Range/Units 04:00 04:00 RBC 2.91 L (4.10-5.20) X 10*6/uL Hgb 9.3 L (12.0-15.0) g/dL Hct 28.4 L (37.2-46.3) % MCV 97.6 H (80.0-97.0) FL RDW 15.7 H (11.5-14.5) % Plt Count 19 A* (140-440) X 10*3/uL MPV 12.9 H (9.5-12.2) FL Immature Gran # 0.21 H (0.00-0.04) X 10*3/uL Lymphocytes # 0.80 L (0.90-5.00) X 10*3/uL NRBC/100 WBC Diff 0.02 H (0.00-0.01) X 10*3/uL Immature Plt Fraction 11.0 H (1.1-6.1) % Anion Gap 14.60 H (4.00-12.00) mmol/L Creatinine 0.5 L (0.6-1.5) mg/dL BUN/Creatinine Ratio 29.80 H (12.00-20.00) Ratio Calcium 10.7 H (8.7-10.3) mg/dL Microbiology - Last 24 Hours (Table) 05/05/24 17:15 Gram Stain - Preliminary Sputum Sputum Culture - Preliminary Lucia albicans 05/04/24 18:37 Blood Culture - Preliminary Blood
--- NOTE | 2024-05-07 14:54 | P.PN ---
Subjective Progress Note Date: 05/07/24 Principal diagnosis: Reason for follow-up is fever/postobstructive pneumonia Patient is a 74-year-old female with a past medical history negative for COPD hypertension hyperlipidemia currently with a smoker admitted to hospital with fever concerning for postobstructive pneumonia. On today's evaluation that is 05/07/2024, the patient continues to be afebrile, the patient is on 2 L, oxygen and breathing slightly comfortably, the Pt denies having any chest pain or any worsening cough, the patient denies having any abdominal pain no vomiting or any diarrhea. Patient white count 7.89 creatinine 0.5 sputum is growing Lucia Objective - Vital Signs Vital signs: Vital Signs Temp 97.9 F 05/07/24 11:00 Pulse 68 05/07/24 14:19 Resp 20 05/07/24 14:19 BP 128/70 05/07/24 14:19 Pulse Ox 93 L 05/07/24 14:19 FiO2 Intake & Output 05/06/24 05/07/24 05/07/24 18:59 06:59 18:59 Intake Total 1080 354 Balance 1080 354 Intake: Oral 1080 Blood Product 354 Unit 0 Platelet Pheresis Pas 354 Psoralen Unit [id number] Other: Voiding Method Bedside Commode Bedside Commode Bedside Commode # Voids 3 2 1 - Exam GENERAL DESCRIPTION: An elderly female lying in bed in no distress RESPIRATORY SYSTEM: Unlabored breathing , decreased breath sounds at bases HEART: S1 S2 regular rate and rhythm , ABDOMEN: Soft , no tenderness EXTREMITIES: No edema feet - Labs CBC & Chem 7: 05/07/24 04:00 05/07/24 04:00 Labs: Abnormal Lab Results - Last 24 Hours (Table) 05/07/24 05/07/24 Range/Units 04:00 04:00 RBC 2.91 L (4.10-5.20) X 10*6/uL Hgb 9.3 L (12.0-15.0) g/dL Hct 28.4 L (37.2-46.3) % MCV 97.6 H (80.0-97.0) FL RDW 15.7 H (11.5-14.5) % Plt Count 19 A* (140-440) X 10*3/uL MPV 12.9 H (9.5-12.2) FL Immature Gran # 0.21 H (0.00-0.04) X 10*3/uL Lymphocytes # 0.80 L (0.90-5.00) X 10*3/uL NRBC/100 WBC Diff 0.02 H (0.00-0.01) X 10*3/uL Immature Plt Fraction 11.0 H (1.1-6.1) % Anion Gap 14.60 H (4.00-12.00) mmol/L Creatinine 0.5 L (0.6-1.5) mg/dL BUN/Creatinine Ratio 29.80 H (12.00-20.00) Ratio Calcium 10.7 H (8.7-10.3) mg/dL Microbiology - Last 24 Hours (Table) 05/05/24 17:15 Gram Stain - Preliminary Sputum Sputum Culture - Preliminary Lucia albicans 05/04/24 18:37 Blood Culture - Preliminary Blood Assessment and Plan (1) Postobstructive pneumonia Current Visit: Yes Status: Acute Code(s): J18.9 - PNEUMONIA, UNSPECIFIED ORGANISM SNOMED Code(s): 032850158 Plan: 1patient presented to hospital with sepsis in this patient noted to have fever tachycardia elevated lactic acid source likely pneumonia and likely concerning for postobstructive pneumonia for which will need to cover for the polymicrobial felicia especially Associated with such infection 2-blood cultures currently pending sputum is growing Lucia 3-patient did have resolution of her fever we will continue patient on Zosyn w hile inpatient transition to oral antibiotics on discharge Dictation was produced using [employer] dictation software. please excuse any grammatical, word or spelling errors. Time with Patient: Less than 30
--- NOTE | 2024-05-07 15:56 | P.PN ---
Subjective Progress Note Date: 05/07/24 Principal diagnosis: metastatic cancer, pain Patient seen today; notes she was doing a bit better earlier but now having right sided chest-pain. Asking for PRN pain medication. She did eat some of her lunch. Had successful liver biopsy this AM. Objective - Vital Signs Vital signs: Vital Signs Temp 97.9 F 05/07/24 11:00 Pulse 104 H 05/07/24 15:20 Resp 22 05/07/24 14:39 BP 153/79 05/07/24 14:39 Pulse Ox 93 L 05/07/24 14:19 FiO2 Intake & Output 05/06/24 05/07/24 05/07/24 18:59 06:59 18:59 Intake Total 1080 354 Balance 1080 354 Intake: Oral 1080 Blood Product 354 Unit 0 Platelet Pheresis Pas 354 Psoralen Unit [id number] Other: Voiding Method Bedside Commode Bedside Commode Bedside Commode # Voids 3 2 1 - Constitutional General appearance: Present: mild distress - EENT Eyes: Present: EOMI, PERRLA ENT: Present: hearing grossly normal - Neck Neck: Absent: lymphadenopathy - Respiratory Respiratory: bilateral: diminished - Cardiovascular Rhythm: regular - Gastrointestinal General gastrointestinal: Absent: distended - Integumentary Integumentary: Present: pale - Neurologic Neurologic: Present: CNII-XII intact - Psychiatric Psychiatric: Present: A&O x's 3 - Labs CBC & Chem 7: 05/07/24 04:00 05/07/24 04:00 Labs: Abnormal Lab Results - Last 24 Hours (Table) 05/07/24 05/07/24 Range/Units 04:00 04:00 RBC 2.91 L (4.10-5.20) X 10*6/uL Hgb 9.3 L (12.0-15.0) g/dL Hct 28.4 L (37.2-46.3) % MCV 97.6 H (80.0-97.0) FL RDW 15.7 H (11.5-14.5) % Plt Count 19 A* (140-440) X 10*3/uL MPV 12.9 H (9.5-12.2) FL Immature Gran # 0.21 H (0.00-0.04) X 10*3/uL Lymphocytes # 0.80 L (0.90-5.00) X 10*3/uL NRBC/100 WBC Diff 0.02 H (0.00-0.01) X 10*3/uL Immature Plt Fraction 11.0 H (1.1-6.1) % Anion Gap 14.60 H (4.00-12.00) mmol/L Creatinine 0.5 L (0.6-1.5) mg/dL BUN/Creatinine Ratio 29.80 H (12.00-20.00) Ratio Calcium 10.7 H (8.7-10.3) mg/dL Microbiology - Last 24 Hours (Table) 05/05/24 17:15 Gram Stain - Preliminary Sputum Sputum Culture - Preliminary Lucia albicans 05/04/24 18:37 Blood Culture - Preliminary Blood Assessment and Plan Assessment: 74 year old female presents with likely widely metastatic (bone, liver and abdominal adenopathy) lung cancer. She is having pain and dyspnea. Liver biopsy performed today. Plan: 1. Dyspnea: Stable currently, on 2L, patient not getting up much at all. 2. Pain: States her lower back pain is better today, but now having right sided chest-pain. Per other services notes, she tends to have multiple areas of pain. 3. Likely metastatic lung cancer: Biopsy performed, hopefully we will have a prelim report Friday. Patient has extensive disease and fairly compromised performance status. Depending on results of biopsy - she may be best served by comfort care. Will re-eval friday. Time with Patient: Less than 30
--- NOTE | 2024-05-07 18:05 | P.PN ---
Subjective Progress Note Date: 05/07/24 This is a 74-year-old female patient who came in today to undergo the bronchoscopy and endobronchial ultrasound for tissue diagnosis regarding possibility of lung cancer the patient was found to have an abnormal CAT scan of the chest that was done on outpatient basis. The patient was saw me in the office approximately a week ago and she was referred to me for an abnormal CAT scan of the chest and shortness of breath. She is a [id number] smoking history and over the past 6 months the patient has been getting progressively more short of breath experiencing exertional dyspnea without hemoptysis. She also had an unexplained weight loss. She had diffuse body aches including pain in her mid back, lower spinal region and upper neck area. Noted the patient had a low-dose CAT scan of the chest that was done on 04/08/2024 and the patient was found to have a large mass measuring up to 7 cm in size in the right lower lobe causing narrowing of the right lower lobe bronchus and tapering of the bronchus intermedius and the patient had atelectatic change in the right lung base posteriorly. There was also evidence of mediastinal lymphadenopathy involving the subcarinal and paratracheal area and there was also abnormalities in the sixth and seventh rib on the right consistent with metastatic disease. There was also disease involving the L2 vertebral spine superior endplate consistent with metastatic disease. Her FEV1 was 34% of predicted and the patient was taken Advair. The patient was supposed to undergo a bronchoscopy today. She arrived and she was hypoxic and she was febrile and she was having increased cough and congestion and shortness of breath. Based on that, the procedure was canceled. A PET scan was also done on 04/30/2024 and the findings were considered to be abnormal. There was extensive metastatic disease with FDG uptake with large conglomeration of uptake in the right lower lobe mass extending to the right hilar in addition to FDG avid mediastinal, right axillary, periaortic node adenopathy and multiple innumerable FDG activity in the liver and diffuse osseous metastatic lytic lesions. There is also an abrupt cut off on the right lower lobe bronchus and postobstructive pneumonia changes. Based on that, I canceled the procedure and admitted this patient to the hospital. The patient is currently on 2 L of oxygen by nasal cannula with a pulse ox of 98%. Her temperature is at 100.0. On today's evaluation of 05/05/2024, the patient slightly large short of breath compared to yesterday. The patient is afebrile and currently is on 2 L of oxygen by nasal cannula. Awaiting an oncology consultation. Lactic acid level remains elevated at 4. The white cell count of 8.5 with a hemoglobin 9.7 and a platelet count of 74. Electrolytes are all stable. Viral screen has been negative. The patient remains on IV Zosyn for postobstructive pneumonia. She r emains on DuoNeb. She is on [place] for pain control. He is also on lactated Ringer at rate of 75 cc an hour. On 05/06/2024, condition is essentially same unchanged. She remains on 2 L with a pulse ox of 92%. The patient has metastatic disease and she has not established tissue diagnosis yet. She is still very uncomfortable and she continues to have generalized bodyaches and she is unable to get herself comfortable. No fever. She has a poor appetite. Working for interventional radiology to establish a fine-needle aspirate for a biopsy. As mentioned earlier, the patient is very ill qualified for any treatment especially the patient lives in [place] without any significant social support system. Patient was also seen by radiation oncology. The white cell count of 8.4, hemoglobin 9.6 and a platelet count of 37. Normal c electrolytes. Calcium level is at 10.9. 05/07/2024, condition is unchanged. The patient is to undergo a needle aspirate of liver lesions for tissue diagnosis. She is being seen by medical oncology and radiation oncology. Oral intake is quite diminished. Remains on oxygen at 2 L with a pulse ox of 91%. Afebrile. The white cell count 7.8, hemoglobin 9.3, platelet count is 19 electrolytes are all stable. Calcium level is at 10.7. Objective - Vital Signs Vital signs: Vital Signs Temp 98.6 F 05/07/24 17:20 Pulse 107 H 05/07/24 17:20 Resp 18 05/07/24 17:20 BP 147/73 05/07/24 17:20 Pulse Ox 91 L 05/07/24 17:20 FiO2 Intake & Output 05/06/24 05/07/24 05/07/24 18:59 06:59 18:59 Intake Total 1080 708 Balance 1080 708 Intake: Oral 1080 Blood Product 708 Platelet Pheresis Pas 708 Psoralen Unit [id number] Other: Voiding Method Bedside Commode Bedside Commode Bedside Commode # Voids 3 2 1 - Exam The patient appeared ill looking, currently on 2 L of oxygen by nasal cannula. Some mild shortness of breath even at rest. She looks quite cachectic. Body mass index is 19. Head exam is unremarkable. No scleral icterus or corneal arcus noted. Neck is without jugular venous distension, thyromegaly, or carotid bruits. Carotid upstrokes are brisk bilaterally. Lungs show diminished breath sounds bilateral especially in the right lung base along with scattered expiratory wheezes Cardiac exam reveals the PMI to be normally sized and situated. Rhythm is regular. First and second heart sounds normal. No murmurs, rubs or gallops. Abdominal exam reveals normal bowel sounds, no masses, no organomegaly and no aortic enlargement. Extremities are nonedematous and both femoral and pedal pulses are normal. Examination of the skin revealed no evidence of significant rashes, suspicious appearing nevi or other concerning lesions. Neurologically, the patient is awake and alert and the patient does not have any focal neurological deficit. Cranial nerves are essentially intact. - Labs CBC & Chem 7: 05/07/24 04:00 05/07/24 04:00 Labs: Abnormal Lab Results - Last 24 Hours (Table) 05/07/24 05/07/24 Range/Units 04:00 04:00 RBC 2.91 L (4.10-5.20) X 10*6/uL Hgb 9.3 L (12.0-15.0) g/dL Hct 28.4 L (37.2-46.3) % MCV 97.6 H (80.0-97.0) FL RDW 15.7 H (11.5-14.5) % Plt Count 19 A* (140-440) X 10*3/uL MPV 12.9 H (9.5-12.2) FL Immature Gran # 0.21 H (0.00-0.04) X 10*3/uL Lymphocytes # 0.80 L (0.90-5.00) X 10*3/uL NRBC/100 WBC Diff 0.02 H (0.00-0.01) X 10*3/uL Immature Plt Fraction 11.0 H (1.1-6.1) % Anion Gap 14.60 H (4.00-12.00) mmol/L Creatinine 0.5 L (0.6-1.5) mg/dL BUN/Creatinine Ratio 29.80 H (12.00-20.00) Ratio Calcium 10.7 H (8.7-10.3) mg/dL Microbiology - Last 24 Hours (Table) 05/05/24 17:15 Gram Stain - Preliminary Sputum Sputum Culture - Preliminary Lucia albicans 05/04/24 18:37 Blood Culture - Preliminary Blood Assessment and Plan Plan: Diffuse metastatic disease with a large right lower lobe mass extending to the right hilum causing abrupt cut off sign of the right lower lobe bronchus in addition to significant atelectatic change in the right lung base and a postobst ructive pneumonia. In addition, the patient has diffuse metastases involving the skeletal system, liver and mediastinal nodes. This obviously carries a very poor prognosis. Highly suspect primary lung cancer with diffuse metastases. Liver biopsy is to be done for tissue diagnosis Postobstructive pneumonia in the right lower lobe Acute hypoxic respiratory failure currently on 2 L of oxygen by nasal cannula Shortness of breath secondary to above COPD with an FEV1 of 34% predicted Chronic debility and ongoing weight loss secondary to above Skeletal pain secondary to diffuse metastases Hypertension Hyperlipidemia History of smoking Lactic acidosis, mild hypercalcemia secondary to skeletal metastases Thrombocytopenia Plan Awaiting final pathology Continues to have diffuse skeletal pain, cannot get herself comfortable. Pain management will be needed. 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 There is mass to the scalp. If tissue diagnosis is needed, recommend a fine-needle aspirate by interventional radiology of various subcutaneous masses including a lesion that is accessible in the anterior sternal area as noted on the PET scan. The patient is very ill qualifies for any further diagnostics or treatment. She has a very poor support system. She lives in [place]. Oncology on the case. Radiation oncology is also on the case Strongly advised hospice care. This was explained to the caregiver friend.
--- NOTE | 2024-05-07 18:30 | P.PN ---
Subjective Progress Note Date: 05/07/24 S/p liver biopsy today. Tolerated procedure well. Denies abd pain. Plt this morning 19,000, pt given 1 unit plt prior to procedure and after procedure. Reporting fatigue Objective - Vital Signs Vital signs: Vital Signs Temp 97.9 F 05/07/24 11:00 Pulse 68 05/07/24 14:19 Resp 20 05/07/24 14:19 BP 128/70 05/07/24 14:19 Pulse Ox 93 L 05/07/24 14:19 FiO2 Intake & Output 05/06/24 05/07/24 05/07/24 18:59 06:59 18:59 Intake Total 1080 354 Balance 1080 354 Intake: Oral 1080 Blood Product 354 Unit 0 Platelet Pheresis Pas 354 Psoralen Unit [id number] Other: Voiding Method Bedside Commode Bedside Commode Bedside Commode # Voids 3 2 1 - Constitutional General appearance: Present: no acute distress - EENT Eyes: Present: EOMI ENT: Present: hearing grossly normal - Respiratory Details: breathing is even and unlabored - Cardiovascular Details: skin warm and dry - Integumentary Integumentary: Absent: cyanotic - Psychiatric Psychiatric: Present: A&O x's 3 - Labs CBC & Chem 7: 05/07/24 04:00 05/07/24 04:00 Labs: Abnormal Lab Results - Last 24 Hours (Table) 05/07/24 05/07/24 Range/Units 04:00 04:00 RBC 2.91 L (4.10-5.20) X 10*6/uL Hgb 9.3 L (12.0-15.0) g/dL Hct 28.4 L (37.2-46.3) % MCV 97.6 H (80.0-97.0) FL RDW 15.7 H (11.5-14.5) % Plt Count 19 A* (140-440) X 10*3/uL MPV 12.9 H (9.5-12.2) FL Immature Gran # 0.21 H (0.00-0.04) X 10*3/uL Lymphocytes # 0.80 L (0.90-5.00) X 10*3/uL NRBC/100 WBC Diff 0.02 H (0.00-0.01) X 10*3/uL Immature Plt Fraction 11.0 H (1.1-6.1) % Anion Gap 14.60 H (4.00-12.00) mmol/L Creatinine 0.5 L (0.6-1.5) mg/dL BUN/Creatinine Ratio 29.80 H (12.00-20.00) Ratio Calcium 10.7 H (8.7-10.3) mg/dL Microbiology - Last 24 Hours (Table) 05/05/24 17:15 Gram Stain - Preliminary Sputum Sputum Culture - Preliminary Lucia albicans 05/04/24 18:37 Blood Culture - Preliminary Blood Assessment and Plan (1) Malignancy Current Visit: Yes Status: Acute Priority: High Code(s): C80.1 - MALIGNANT (PRIMARY) NEOPLASM, UNSPECIFIED SNOMED Code(s): 409613935 (2) Postobstructive pneumonia Current Visit: Yes Status: Acute Code(s): J18.9 - PNEUMONIA, UNSPECIFIED ORGANISM SNOMED Code(s): 603360914 Plan: Metastatic malignancy -Patient was initially evaluated by medical oncology few weeks ago. -She had a PET CT scan for target for biopsy. Images were reviewed with Radiation Oncologist. Significant disease is noted throughout the body. Pulmonary has assessed the patient, unfortunately, her respiratory status does not permit them to perform a bronchoscopy and biopsy. On exam, patient has subcutaneous nodules, most notably in the right axilla,this has been biopsied before-IR took a look at it and there is a clip. Pt reports that the biopsy was benign. Looking for another target, IR reports liver lesions are amenable. Pt is ok with liver biopsy -Vital signs overall are stable patient does have a significantly elevated lactic acid, but could be related to the overwhelming amount of malignancy she has. She is on antibiotics. Infectious disease as seen her. Sputum culture positive for lucia -Bicytopenia noted with a hemoglobin of 9.7 and platelets dropped to 37,000. Plt this morning 19,000. 1 dose plts given prior to and after liver biopsy today. Pathology pending -Radiation oncology has seen pt. They will follow with pt for palliative radiation as needed. *Unfortunately, I believe that patient does not have any family, she does have 2 friends that do help her. I asked her today who she would like me to speak with and she stated [place]. Reviewed clinical course with [place] on the phone. Reviewed PET scan results, plans for biopsy, suspicions for metastatic lung cancer, treatment options- including non-chemo options like IO and oral targeted therapies if pt qualified-as well as the intent of any treatment would be palliative in nature. Unfortunately, we are not able to say at this time exactly what the treatment options would be. Pending pathology. Asked he friend what she thinks pt could handle. [place] stated pt lives alone up in [place], not a lot of support but, her estranged brother has been around the last few weeks checking on her. Will f/u on pathology and provide further recommendations pending workup Doctor attests: I performed a history and physical examination of this patient, developed impression and plan of care. Discussed with dictator. I agree with dictators note, documented as a scribe.
[2024-05-08 00:20] LABS: Anisocytosis Slight; Basophils % (A) 0 %; Eosinophils # (A) 0.1 k/uL (0-0.7); Eosinophils % (A) 1 %; HCT 29.9 % (34.0-46.0); Lymphocytes # (A) 0.9 k/uL (1.0-4.8); Lymphocytes % (A) 9 %; MCH 31.5 pg (25.0-35.0); MCHC 31.8 g/dL (31.0-37.0); MCV 99.3 fL (80.0-100.0); Macrocytosis Slight; Mean Platelet Volume 10.6; Monocytes # (A) 0.5 k/uL (0-1.0); Monocytes % (A) 5 %; Neutrophils # (A) 7.6 k/uL (1.3-7.7); Neutrophils % (A) 82 %; RBC 3.01 m/uL (3.80-5.40); RDW 16.1 % (11.5-15.5); WBC 9.3 k/uL (3.8-10.6)
[2024-05-08 00:23] LABS: Platelet Count 52 k/uL (150-450)
[2024-05-08 00:27] LABS: HGB 9.5 gm/dL (11.4-16.0)
[2024-05-08] MEDS: IPRATROPIUM-ALBUTEROL 3 ML NEB INHALATION PRN (03:15)
[2024-05-08 09:31] LABS: Blood Urea Nitrogen 15.5 mg/dL (9.0-27.0); Calcium 10.5 mg/dL (8.7-10.3); Chloride 96 mmol/L (96-109); Glucose 98 mg/dL (70-110); Magnesium 1.4 mg/dL (1.5-2.4); Potassium 3.4 mmol/L (3.5-5.5); Sodium 138 mmol/L (135-145)
[2024-05-08 11:08] LABS: Basophils # (A) 0.05 X 10*3/uL (0.00-0.10); Basophils % (A) 0.6 %; Eosinophils # (A) 0.03 X 10*3/uL (0.04-0.35); Eosinophils % (A) 0.4 %; HCT 26.5 % (37.2-46.3); HGB 8.7 g/dL (12.0-15.0); Immature Platelet Fraction 9.8 % (1.1-6.1); Lymphocytes % (A) 8.4 %; MCH 31.8 pg (27.0-32.0); MCHC 32.8 g/dL (32.0-37.0); MCV 96.7 FL (80.0-97.0); Mean Platelet Volume 11.9 FL (9.5-12.2); Monocytes # (A) 0.79 X 10*3/uL (0.20-1.00); Monocytes % (A) 9.5 %; NRBC Per 100 WBC 0.05 X 10*3/uL (0.00-0.01); Neutrophils # (A) 6.55 X 10*3/uL (1.80-7.70); Neutrophils % (A) 78.6 %; Platelet Count 16 X 10*3/uL (140-440); RBC 2.74 X 10*6/uL (4.10-5.20); RDW 16.2 % (11.5-14.5); WBC 8.33 X 10*3/uL (4.50-10.00)
[2024-05-08] MEDS ORDERED: MORPHINE SULFATE 100 MG in SODIUM CHLORIDE 0.9% 90 ML IV SCH (13:15)
--- NOTE | 2024-05-08 13:33 | P.PN ---
Subjective Progress Note Date: 05/08/24 Hospital Course: Patient is a 74-year-old female with history of COPD (not on home oxygen), hyperlipidemia, hypertension was supposed to undergo bronchoscopy and EBUS with Dr. Mcdonald today on an outpatient basis due to recent abnormal low-dose CAT scan of the lung and PET scan. Patient is admitted to the hospital because she has been feeling short of breath which has been getting progressively worse associated with cough and congestion. The procedure has been postponed. Patient has significant smoking history and over the past 6 months she has been experiencing progressively worsening exertional dyspnea and unintentional weight loss. Initial laboratory evaluation 10.9, WBC 9.4, hemoglobin 11.0, hematocrit 34.9, platelet count 91, sodium 133, chloride 94, BUN 35, creatinine 0.77, EGFR 77, l actic acid 4.6, calcium 9.9, AST 68, ALT 40, ALP 292, C-reactive protein 1.5, procalcitonin 1.74. Influenza type A, B, RSV, COVID-[address] shows no acute cranial process, scattered lucent lesions throughout the skull compatible with metastatic disease seen on prior PET, nonspecific white matter changes, likely secondary to chronic small vessel ischemic disease. Axillary ultrasound shows right axillary lymph node. Vital signs on arrival shows temperature 99.9 F, pulse rate 112, respiratory rate 22, blood pressure 152/82, oxygen saturation 91% on room air Subjective: Patient seen and examined at the bedside. No acute events overnight. Patient had a liver biopsy done yesterday, awaiting results. Patient continues to be in distress due to her chronic pain. Patient has her brother and her friend at the bedside this morning. Patient wants to pursue hospice care. Family is in agreement. Her platelet this morning remain critically ill. No active bleeding. Prognosis remains guarded. All Systems reviewed and pertinent positives and negatives noted in HPI, all other symptoms are negative Objective: Vital signs reviewed. Physical examination: Vital signs reviewed General: Chronically ill looking and cachectic Derm: no unusual rashes/lesions, warm Head: atraumatic, normocephalic, symmetric Eyes: EOMI, no lid lag, anicteric sclera, pupils equal round reactive to light ENT: Nose and ears atraumatic Neck: No cervical lymphadenopathy, trachea midline, supple Mouth: no lip lesion, mucus membranes moist Cardiovascular: S1S2 reg, no murmur, positive dorsalis pedis pulse bilateral, no edema Lungs: CTAB, no wheezing or rales or crackles noted. Abdominal: soft, nontender to palpation, no guarding, incision site for biopsy is clean and dry. Ext: muscle strength 5 out of 5 in all 4 extremities grossly, no gross muscle atrophy, no contractures, Neuro: CN II-XI grossly intact, no gross focal neuro deficits Psych: Alert, oriented, appropriate affect Data reviewed today: Pertinent labs: Platelet count 16, hemoglobin 8.7, WBC 8.3, BUN 15.5, creatinine 0.5, lactic acid 5.2, calcium 10.5, magnesium 1.4 Images: No new imaging Assessment and Plan: #Lung mass, likely metastatic #Acute hypoxemic respiratory failure in the setting of likely metastatic lung disease #Lactic acidosis secondary to above #Hypercalcemia secondary above #Elevated procalcitonin #Thrombocytopenia #Normocytic anemia Pulmonology on board; appreciate recs Radiation oncology and medical oncology on board; appreciate recs Infectious disease on board; appreciate recs Interventional radiology on board; appreciate recs; ultrasound-guided liver biopsy done on 05/07/2024, awaiting results Oxygen therapy as needed Continue with Symbicort and albuterol inhalers Continue with DuoNebs scheduled and [id number] Continue with Zosyn 3.375 g IVP every 8 hour Lactated Ringer's at 75 cc/h Monitor CBC Platelet transfusion if platelet count below 20; status post 1 unit; order additional 1 unit Monitor PT/INR CBC in p.m. Hospice care was discussed with patient and family #Transaminases in the setting of likely metastatic lung disease Monitor CMP #Chronic back pain secondary to metastatic bone lesion Pain management with [place], Dilaudid, morphine as needed Chronic conditions: Resume home medications DVT prophylaxis: Subcu heparin GI prophylaxis: None F: LR at 75 cc/h E: Replete as needed N: Regular diet A: Ambulatory at baseline CODE STATUS: No code Discussed with: Patient Anticipated discharge place: Hospice care Dictation was produced using [employer] dictation software. Please excuse any grammatical, word or spelling errors. Objective - Vital Signs Vital signs: Vital Signs Temp 98.5 F 05/08/24 11:37 Pulse 101 H 05/08/24 12:29 Resp 20 05/08/24 12:29 BP 154/83 05/08/24 11:37 Pulse Ox 92 L 05/08/24 11:37 FiO2 Intake & Output 05/07/24 05/08/24 05/08/24 18:59 06:59 18:59 Intake Total 708 Balance 708 Intake: Blood Product 708 Platelet Pheresis Pas 708 Psoralen Unit [id number] Other: Voiding Method Bedside Commode Bedside Commode # Voids 1 2 # Bowel Movements 1 - Labs CBC & Chem 7: 05/08/24 05:29 05/08/24 05:29 Labs: Abnormal Lab Results - Last 24 Hours (Table) 05/07/24 05/08/24 05/08/24 Range/Units 19:17 05:29 05:29 RBC 3.01 L 2.74 L (3.80-5.40) m/uL Hgb 9.5 L D 8.7 L (11.4-16.0) gm/dL Hct 29.9 L 26.5 L (34.0-46.0) % RDW 16.1 H 16.2 H (11.5-15.5) % Plt Count 52 L 16 A* (150-450) k/uL Immature Gran # 0.21 H (0.00-0.04) X 10*3/uL Lymphocytes # 0.9 L 0.70 L (1.0-4.8) k/uL Eosinophils # 0.03 L (0.04-0.35) X 10*3/uL NRBC/100 WBC Diff 0.05 H (0.00-0.01) X 10*3/uL Immature Plt Fraction 9.8 H (1.1-6.1) % Potassium 3.4 L (3.5-5.5) mmol/L Anion Gap 18.00 H (4.00-12.00) mmol/L Creatinine 0.5 L (0.6-1.5) mg/dL BUN/Creatinine Ratio 31.00 H (12.00-20.00) Ratio Plasma Lactic Acid Mickey (0.7-2.0) mmol/L Calcium 10.5 H (8.7-10.3) mg/dL Magnesium 1.4 L (1.5-2.4) mg/dL 05/08/24 05/08/24 05/08/24 Range/Units 05:29 09:28 12:42 RBC (3.80-5.40) m/uL Hgb (11.4-16.0) gm/dL Hct (34.0-46.0) % RDW (11.5-15.5) % Plt Count (150-450) k/uL Immature Gran # (0.00-0.04) X 10*3/uL Lymphocytes # (1.0-4.8) k/uL Eosinophils # (0.04-0.35) X 10*3/uL NRBC/100 WBC Diff (0.00-0.01) X 10*3/uL Immature Plt Fraction (1.1-6.1) % Potassium (3.5-5.5) mmol/L Anion Gap (4.00-12.00) mmol/L Creatinine (0.6-1.5) mg/dL BUN/Creatinine Ratio (12.00-20.00) Ratio Plasma Lactic Acid Mickey 4.1 H* 5.2 H* 4.9 H* (0.7-2.0) mmol/L Calcium (8.7-10.3) mg/dL Magnesium (1.5-2.4) mg/dL Microbiology - Last 24 Hours (Table) 05/05/24 17:15 Gram Stain - Final Sputum Sputum Culture - Final Lucia albicans 05/04/24 18:37 Blood Culture - Preliminary Blood
[2024-05-08 13:48] VITALS: RESP 16
[2024-05-08 14:28] VITALS: BP 148/79; PULSE 106; TEMP 97.5
--- NOTE | 2024-05-08 14:53 | P.PN ---
Subjective Progress Note Date: 05/08/24 On 05/08/2024, the patient is post liver biopsy pending results. Patient continues to be short of breath and in chronic pain. Further discussions were held with the family and the patient and her caregivers) decided to proceed with hospice care. Hospice has been consulted. Objective - Vital Signs Vital signs: Vital Signs Temp 97.5 F L 05/08/24 13:55 Pulse 106 H 05/08/24 13:55 Resp 16 05/08/24 13:55 BP 148/79 05/08/24 13:55 Pulse Ox 89 L 05/08/24 13:35 FiO2 Intake & Output 05/07/24 05/08/24 05/08/24 18:59 06:59 18:59 Intake Total 708 359 Balance 708 359 Intake: Blood Product 708 359 Platelet Pheresis Pas 359 Psoralen Unit [id number] Platelet Pheresis Pas 708 Psoralen Unit [id number] Other: Voiding Method Bedside Commode Bedside Commode # Voids 1 2 # Bowel Movements 1 - Exam The patient appeared ill looking, currently on 2 L of oxygen by nasal cannula. Some mild shortness of breath even at rest. She looks quite cachectic. Body mass index is 19. Head exam is unremarkable. No scleral icterus or corneal arcus noted. Neck is without jugular venous distension, thyromegaly, or carotid bruits. Carotid upstrokes are brisk bilaterally. Lungs show diminished breath sounds bilateral especially in the right lung base along with scattered expiratory wheezes Cardiac exam reveals the PMI to be normally sized and situated. Rhythm is regular. First and second heart sounds normal. No murmurs, rubs or gallops. Abdominal exam reveals normal bowel sounds, no masses, no organomegaly and no aortic enlargement. Extremities are nonedematous and both femoral and pedal pulses are normal. Examination of the skin revealed no evidence of significant rashes, suspicious appearing nevi or other concerning lesions. Neurologically, the patient is awake and alert and the patient does not have any focal neurological deficit. Cranial nerves are essentially intact. - Labs CBC & Chem 7: 05/08/24 05:29 05/08/24 05:29 Labs: Abnormal Lab Results - Last 24 Hours (Table) 05/07/24 05/08/24 05/08/24 Range/Units 19:17 05:29 05:29 RBC 3.01 L 2.74 L (3.80-5.40) m/uL Hgb 9.5 L D 8.7 L (11.4-16.0) gm/dL Hct 29.9 L 26.5 L (34.0-46.0) % RDW 16.1 H 16.2 H (11.5-15.5) % Plt Count 52 L 16 A* (150-450) k/uL Immature Gran # 0.21 H (0.00-0.04) X 10*3/uL Lymphocytes # 0.9 L 0.70 L (1.0-4.8) k/uL Eosinophils # 0.03 L (0.04-0.35) X 10*3/uL NRBC/100 WBC Diff 0.05 H (0.00-0.01) X 10*3/uL Immature Plt Fraction 9.8 H (1.1-6.1) % Potassium 3.4 L (3.5-5.5) mmol/L Anion Gap 18.00 H (4.00-12.00) mmol/L Creatinine 0.5 L (0.6-1.5) mg/dL BUN/Creatinine Ratio 31.00 H (12.00-20.00) Ratio Plasma Lactic Acid Mickey (0.7-2.0) mmol/L Calcium 10.5 H (8.7-10.3) mg/dL Magnesium 1.4 L (1.5-2.4) mg/dL 05/08/24 05/08/24 05/08/24 Range/Units 05: 09:28 12:42 RBC (3.80-5.40) m/uL Hgb (11.4-16.0) gm/dL Hct (34.0-46.0) % RDW (11.5-15.5) % Plt Count (150-450) k/uL Immature Gran # (0.00-0.04) X 10*3/uL Lymphocytes # (1.0-4.8) k/uL Eosinophils # (0.04-0.35) X 10*3/uL NRBC/100 WBC Diff (0.00-0.01) X 10*3/uL Immature Plt Fraction (1.1-6.1) % Potassium (3.5-5.5) mmol/L Anion Gap (4.00-12.00) mmol/L Creatinine (0.6-1.5) mg/dL BUN/Creatinine Ratio (12.00-20.00) Ratio Plasma Lactic Acid Mickey 4.1 H* 5.2 H* 4.9 H* (0.7-2.0) mmol/L Calcium (8.7-10.3) mg/dL Magnesium (1.5-2.4) mg/dL Microbiology - Last 24 Hours (Table) 05/05/24 17:15 Gram Stain - Final Sputum Sputum Culture - Final Lucia albicans 05/04/24 18:37 Blood Culture - Preliminary Blood Assessment and Plan Plan: Diffuse metastatic disease with a large right lower lobe mass extending to the right hilum causing abrupt cut off sign of the right lower lobe bronchus in addition to significant atelectatic change in the right lung base and a postobstructive pneumonia. In addition, the patient has diffuse metastases involving the skeletal system, liver and mediastinal nodes. This obviously carries a very poor prognosis. Highly suspect primary lung cancer with diffuse metastases. Liver biopsy completed Postobstructive pneumonia in the right lower lobe Acute hypoxic respiratory failure currently on 2 L of oxygen by nasal cannula Shortness of breath secondary to above COPD with an FEV1 of 34% predicted Chronic debility and ongoing weight loss secondary to above Skeletal pain secondary to diffuse metastases Hypertension Hyperlipidemia History of smoking Lactic acidosis, mild hypercalcemia secondary to skeletal metastases Thrombocytopenia Plan Very poor prognosis with evidence of metastatic carcinoma, pending biopsy results Proceed with hospice care
--- NOTE | 2024-05-08 16:13 | P.PN ---
Subjective Progress Note Date: 05/08/24 Principal diagnosis: Reason for follow-up is fever/postobstructive pneumonia Patient is a 74-year-old female with a past medical history negative for COPD hypertension hyperlipidemia currently with a smoker admitted to hospital with fever concerning for postobstructive pneumonia. On today's evaluation that is 05/08/2024, patient did not have any fever and denies any chills, patient is breathing comfortably on 2 L current oxygen, patient with no chest pain or any worsening cough patient did not have any abdominal pain nausea vomiting or any loose stools. Patient did have lactic acid of 4.9 no CBC was done today sputum with scheduled albuterol blood culture negative Objective - Vital Signs Vital signs: Vital Signs Temp 97.5 F L 05/08/24 13:55 Pulse 106 H 05/08/24 13:55 Resp 16 05/08/24 13:55 BP 148/79 05/08/24 13:55 Pulse Ox 89 L 05/08/24 13:35 FiO2 Intake & Output 05/07/24 05/08/24 05/08/24 18:59 06:59 18:59 Intake Total 708 359 Balance 708 359 Intake: Blood Product 708 359 Platelet Pheresis Pas 359 Psoralen Unit [id number] Platelet Pheresis Pas 708 Psoralen Unit [id number] Other: Voiding Method Bedside Commode Bedside Commode # Voids 1 2 # Bowel Movements 1 - Exam GENERAL DESCRIPTION: An elderly female lying in bed in no distress RESPIRATORY SYSTEM: Unlabored breathing , decreased breath sounds at bases HEART: S1 S2 regular rate and rhythm , ABDOMEN: Soft , no tenderness EXTREMITIES: No edema feet - Labs CBC & Chem 7: 05/08/24 05:29 05/08/24 05:29 Labs: Abnormal Lab Results - Last 24 Hours (Table) 05/07/24 05/08/24 05/08/24 Range/Units 19:17 05:29 05:29 RBC 3.01 L 2.74 L (3.80-5.40) m/uL Hgb 9.5 L D 8.7 L (11.4-16.0) gm/dL Hct 29.9 L 26.5 L (34.0-46.0) % RDW 16.1 H 16.2 H (11.5-15.5) % Plt Count 52 L 16 A* (150-450) k/uL Immature Gran # 0.21 H (0.00-0.04) X 10*3/uL Lymphocytes # 0.9 L 0.70 L (1.0-4.8) k/uL Eosinophils # 0.03 L (0.04-0.35) X 10*3/uL NRBC/100 WBC Diff 0.05 H (0.00-0.01) X 10*3/uL Immature Plt Fraction 9.8 H (1.1-6.1) % Potassium 3.4 L (3.5-5.5) mmol/L Anion Gap 18.00 H (4.00-12.00) mmol/L Creatinine 0.5 L (0.6-1.5) mg/dL BUN/Creatinine Ratio 31.00 H (12.00-20.00) Ratio Plasma Lactic Acid Mickey (0.7-2.0) mmol/L Calcium 10.5 H (8.7-10.3) mg/dL Magnesium 1.4 L (1.5-2.4) mg/dL 05/08/24 05/08/24 05/08/24 Range/Units 05:29 09:28 12:42 RBC (3.80-5.40) m/uL Hgb (11.4-16.0) gm/dL Hct (34.0-46.0) % RDW (11.5-15.5) % Plt Count (150-450) k/uL Immature Gran # (0.00-0.04) X 10*3/uL Lymphocytes # (1.0-4.8) k/uL Eosinophils # (0.04-0.35) X 10*3/uL NRBC/100 WBC Diff (0.00-0.01) X 10*3/uL Immature Plt Fraction (1.1-6.1) % Potassium (3.5-5.5) mmol/L Anion Gap (4.00-12.00) mmol/L Creatinine (0.6-1.5) mg/dL BUN/Creatinine Ratio (12.00-20.00) Ratio Plasma Lactic Acid Mickey 4.1 H* 5.2 H* 4.9 H* (0.7-2.0) mmol/L Calcium (8.7-10.3) mg/dL Magnesium (1.5-2.4) mg/dL Microbiology - Last 24 Hours (Table) 05/05/24 17:15 Gram Stain - Final Sputum Sputum Culture - Final Lucia albicans 05/04/24 18:37 Blood Culture - Preliminary Blood Assessment and Plan (1) Postobstructive pneumonia Status: Acute Code(s): J18.9 - PNEUMONIA, UNSPECIFIED ORGANISM SNOMED Code(s): 639069022 Plan: 1patient presented to hospital with sepsis in this patient noted to have fever tachycardia elevated lactic acid source likely pneumonia and likely concerning for postobstructive pneumonia for which will need to cover for the polymicrobial felicia especially Associated with such infection 2-blood cultures currently pending sputum is growing Lucia 3-patient did have resolution of her fever she is on Zosyn however apparently planning for hospice which may be appropriate because of her underlying malignancy in the case antibiotics can be safely discontinued Dictation was produced using [employer] dictation software. please excuse any grammatical, word or spelling errors. Time with Patient: Less than 30
--- NOTE | 2024-05-11 10:53 | CDI ---
Documentation Clarification Form Date: 05/11/2024 10:34:11 AM From: Lesly Horan Phone: Admit Date: 05/04/2024 12:39:00 PM Patient Name: Salome Villegas Visit Number: [id number] Discharge Date: 05/08/2024 01:43:00 PM ATTENTION: The Clinical Documentation Specialists (CDI) and [facility] Coding Staff appreciate your assistance in clarifying documentation. Please respond to the clarification below the line at the bottom and electronically sign. The CDI & [facility] Coding staff will review the response and follow-up if needed. Please note: Queries are made part of the Legal Health Record. If you have any questions, please contact the author of this message via ITS. Doctor/Provider: Tad Waldron this patient noted to havefever tachycardiaelevatedlactic acid sourcelikelypneumoniaandlikelyconcerning for post obstructivepneumonia per Consult note 05/05. Based on this information and the findings below, is there an additional diagnosis that is clinically appropriate for this patient? History/Risk Factors: 74yo F, AHRF, RLL cancerw mets to bone, liver and abdominal adenopathy, post obstructivePNA w Lucia, COPDHTN, severe, PCM, bicytopenia, former smoker (quit last week) Clinical Indicators: WBC: 9.4 Lactic acid: 4.6 Blood cultures: No Growth After 5 Days Vitals signs: Temp 97.9 Pulse 90 Resp 14 BP 133/68 Pulse Ox 97 Treatment: Vital signs overall are stable patient does have a significantlyelevated lactic acid, butcould be related tothe overwhelming amount ofmalignancyshe has. She is on ABx. IDas seen her. Sputum culture positive forcandida per Progress Note 05/07 Is there an additional diagnosis that is clinically appropriate for this patient? Please select any/all that apply. [ x] Sepsis due to post obstructive Candidapneumonia, present on admission [ ] Sepsis due to , present on admission [ ] Sepsis, developed during stay, not present on admission [ ] Severe Sepsis with organ failure, as evidenced [ ] No additional diagnosis/not clinically significant [ ] Other, please specify [ ] Unable to determine SIRS Criteria: 2 or more of the following may indicate SIRS Temperature < 96.8F (36C) or > 101.0F (38.3C) Heart Rate > 90 bpm Respiratory Rate > 20 breaths/min or PaCO2 < 32 mmHg White Blood Cell Count > 12,000 or < 4,000 cells/mm3 or > 10% bands (Template Last Reviewed: February 2022) MTDD
== END 2024-05-08 13:43 | disposition hospice, inpatient (51) | DRG 871 ==
LOC: ORWHC2ENDO 12:38 → 5NMEDONC 12:39
PROVIDERS: ADMIT Internal Medicine; ATTEND Internal Medicine
PROC: 0FB03ZX Excision of Liver, Percutaneous Approach, Diagnostic (ICD-10-PCS; principal; 2024-05-07)
PROC: 6A551Z2 Pheresis of Platelets, Multiple (ICD-10-PCS; 2024-05-07)
PROC: 30233R1 Transfusion of Nonautologous Platelets into Peripheral Vein, Percutaneous Approach (ICD-10-PCS; 2024-05-07)
DX: B37.7 Candidal sepsis (principal); E43 Unspecified severe protein-calorie malnutrition; J96.01 Acute respiratory failure with hypoxia; C78.7 Secondary malignant neoplasm of liver and intrahepatic bile duct; C79.51 Secondary malignant neoplasm of bone; E87.20 Acidosis, unspecified; R64 Cachexia; C34.31 Malignant neoplasm of lower lobe, right bronchus or lung; J44.0 Chronic obstructive pulmonary disease with (acute) lower respiratory infection; D63.0 Anemia in neoplastic disease; D69.6 Thrombocytopenia, unspecified; I10 Essential (primary) hypertension; Z68.1 Body mass index [BMI] 19.9 or less, adult; B37.1 Pulmonary candidiasis; Z51.5 Encounter for palliative care; Z66 Do not resuscitate; G89.3 Neoplasm related pain (acute) (chronic); E83.52 Hypercalcemia; E78.5 Hyperlipidemia, unspecified; R59.0 Localized enlarged lymph nodes; D75.89 Other specified diseases of blood and blood-forming organs; R53.81 Other malaise; Z53.8 Procedure and treatment not carried out for other reasons; Z79.899 Other long term (current) drug therapy; Z79.51 Long term (current) use of inhaled steroids; Z87.891 Personal history of nicotine dependence
CPT/HCPCS: 47000; 70450; 76942; 80048; 80053; 83605; 83735; 84145; 85025; 85049; 85610; 85652; 86140; 86850; 86900; 86901; 87040; 87070; 87205; 87636; 88307; 94640; 94760

== ENCOUNTER 2024-05-08 13:12 | Inpatient (IN) | payer MEDICAID ==
[2024-05-08] MEDS ORDERED: MORPHINE SULFATE 4 MG/ML SYRINGE IV PRN (13:18)
[2024-05-08] MEDS ORDERED: LORazepam 1 MG/0.5 ML VIAL IV PRN (13:18)
[2024-05-08] MEDS ORDERED: ATROPINE OPHTH SOLN 1% 5ML BTL SUBLINGUAL PRN (13:18)
[2024-05-08] MEDS: MORPHINE SULFATE 100 MG in SODIUM CHLORIDE 0.9% 90 ML IV SCH (15:33)
[2024-05-08] MEDS: GLYCOPYRROLATE 0.2 MG/ML 2 ML VIAL IVP PRN (23:05)
[2024-05-09 06:59] VITALS: BP 92/57; PULSE 71; TEMP 99.7
[2024-05-09 08:18] VITALS: RESP 8
--- NOTE | 2024-05-11 09:05 | P.HPIM ---
History of Present Illness H&P Date: 05/09/24 This is a 74-year-old female medical history of COPD hyperlipidemia hypertension. Patient was supposed to have an bronchoscopy and EBUS with Dr. Bush on the outpatient basis as she had a recently abnormal CT scan of the lung and PET scan. Patient was having progressive shortness of breath with cough and congestion. Procedure was postponed and patient was admitted to the hospital. Initial blood work reveals 10.9, WBC 9.4, hemoglobin 11.0, hematocrit 34.9, platelet count 91, sodium 133, chloride 94, BUN 35, creatinine 0.77, EGFR 77, lactic acid 4.6, calcium 9.9, AST 68, ALT 40, ALP 292, C-reactive protein 1.5, procalcitonin 1.74. Influenza type A, B, RSV, COVID-[address] shows no acute cranial process, scattered lucent lesions throughout the skull compatible with metastatic disease seen on prior PET, nonspecific white matter changes, likely secondary to chronic small vessel ischemic disease. Axillary ultrasound shows right axillary lymph node. Vital signs on arrival shows temperature 99.9 F, pulse rate 112, respiratory rate 22, blood pressure 152/82, oxygen saturation 91% on room air. Patient was admitted to the hospital with a consult placed to pulmonology services. Infectious disease oncology and radiation oncology were also consulted. Patient underwent core liver biopsy while in the hospital with positive results for metastatic small cell carcinoma. Patient had positive sputum culture for Lucia. Infectious disease and oncology were consulted. As patient had a clinical decline with continued hypoxemia patient and family have opted for hospice and comfort care measures. Unable to complete review of systems at this time as patient is currently actively passing and unresponsive. PHYSICAL EXAMINATION: GENERAL: The patient is alert and oriented x0, not in any acute distress. Well developed, well nourished. Ill-appearing cachectic. HEENT: Pupils are round and equally reacting to light. EOMI. No scleral icterus. No conjunctival pallor. Normocephalic, atraumatic. No pharyngeal erythema. No thyromegaly. CARDIOVASCULAR: S1 and S2 present. No murmurs, rubs, or gallops. PULMONARY: Scattered wheezing ABDOMEN: Soft, nontender, nondistended, normoactive bowel sounds. No palpable organomegaly. MUSCULOSKELETAL: No joint swelling or deformity. EXTREMITIES: No cyanosis, clubbing, or pedal edema. NEUROLOGICAL: Unable to assess SKIN: No rashes. 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 The impression and plan of care has been dictated by Joann Kamara Nurse Practitioner as directed. Dr. Olman MD I have performed a history and physical examination and medical decision making of this patient, discussed the same with the dictator, and agree with the dictators assessment and plan as written, documented as a scribe. Based on total visit time, I have performed more than 50% of this visit. Past Medical History Past Medical History: COPD, Hyperlipidemia, Hypertension Additional Past Medical History / Comment(s): coughing,shortness of breath, History of Any Multi-Drug Resistant Organisms: None Reported Additional Past Surgical History / Comment(s): lymph node bix in groin Past Anesthesia/Blood Transfusion Reactions: No Reported Reaction Smoking Status: Current every day smoker - Past Family History Father Family Medical History: Cancer Mother Family Medical History: Cancer Medications and Allergies Home Medications Medication Instructions Recorded Confirmed Type Albuterol Inhaler [Ventolin Hfa 1 - 2 puff INHALATION Q6H PRN 05/03/24 05/04/24 History Inhaler] Atorvastatin [Lipitor] 20 mg PO HS 05/03/24 05/04/24 History Fluticasone Propion/Salmeterol 2 puff INHALATION BID 05/03/24 05/04/24 History [Advair Hfa 45-21 Mcg Inhaler] hydroCHLOROthiazide 12.5 mg PO DAILY 05/03/24 05/04/24 History Allergies Allergy/AdvReac Type Severity Reaction Status Date / Time No Known Allergies Allergy Verified 05/04/24 13:09
== END 2024-05-09 13:41 | disposition expired | DRG 951 ==
LOC: 5NMEDONC 13:44
DX: Z51.5 Encounter for palliative care (principal); J96.01 Acute respiratory failure with hypoxia; C78.7 Secondary malignant neoplasm of liver and intrahepatic bile duct; C79.51 Secondary malignant neoplasm of bone; Z66 Do not resuscitate; C34.31 Malignant neoplasm of lower lobe, right bronchus or lung; J44.0 Chronic obstructive pulmonary disease with (acute) lower respiratory infection; D69.6 Thrombocytopenia, unspecified; I10 Essential (primary) hypertension; G89.3 Neoplasm related pain (acute) (chronic); R53.81 Other malaise; E78.5 Hyperlipidemia, unspecified; E83.52 Hypercalcemia; F17.210 Nicotine dependence, cigarettes, uncomplicated; Z79.899 Other long term (current) drug therapy; Z79.51 Long term (current) use of inhaled steroids